=== PATIENT | male | born 1960 | race African-American/Black ===

== ENCOUNTER 2019-03-21 08:38 | Outpatient (CLI) | payer BC, SELFPAY ==
--- NOTE | ~2019-03-21 | XR_ITS ---
EXAMINATION: XR shoulder RT min 2V EXAM DATE: 03/21/2019 08:51 INDICATION: No known recent injury provided at this time. Pain of the right shoulder. TECHNIQUE: The following right shoulder projections obtained: frontal projection with internal rotati on, frontal projection with external rotation, Grashey, and axillary (4+ views). There is no prior s tudy for comparison. FINDINGS: No evidence of right shoulder rotator cuff calcific tendinosis. . There is mild glenohum eral, mild to moderate acromioclavicular acromioclavicular joint primary osteoarthritis. High riding right shoulder could indicate chronic rotator cuff tear. There are no acute fractures or dislocation s identified. There is no subcutaneous gas. The soft tissue is unremarkable. There are no radiopa que foreign bodies. IMPRESSION: 1. Mild to moderate right shoulder osteoarthritis. 2. Possible chronic rotator cuff tear. Reviewed, dictated and finalized at location A. NING GENERALIST
== END 2019-03-21 08:39 | disposition home or self-care (01) ==
LOC: ANHIMG 08:42
PROVIDERS: PCP Family Medicine; Visit Provider Physician Assistant
DX: M19.011 Primary osteoarthritis, right shoulder (principal)
CPT/HCPCS: 73030

== ENCOUNTER 2019-04-23 00:08 | Day surgery (SDC) | payer BC, SELFPAY ==
[2019-04-16 14:48] VITALS: BMI 21.3
[2019-04-23 07:50] VITALS: BP 111/84; PULSE 60; RESP 16; TEMP 36.3; O2SAT 100; BMI 22.4
--- NOTE | 2019-04-23 08:01 | P.HP_ITS ---
History of Present Illness History of Present Illness Consent: Risks, benefits, and alternatives have been discussed and questions answered. Patient agrees to proceed with procedure. Chief complaint: neoplasm screening, family hx colon CA Narrative: Luis Sharpe is a 58 year old AA male Referred for screening colonoscopy secondary family history of colon cancer in his mother and maternal grandmother. Patient states he has had several colonoscopies in the past last one was 5 years ago and no polyps were seen at that time. Patient is asymptomatic. [facility] Past Medical History Medical History H/O bladder problems History of colon polyps Social History Social History Smoking status: Never smoker Alcohol intake: current Substance use: never Meds Home Medications and Allergies Home Medications Medication Instructions Recorded Confirmed Type clopidogrel 75 mg tablet 75 mg PO DAILY 01/31/19 04/23/19 History ferrous sulfate 325 mg (65 mg 325 mg PO DAILY 01/31/19 04/16/19 History iron) tablet omega-3 fatty acids 1,000 mg 1,000 mg PO DAILY 01/31/19 04/16/19 History capsule rosuvastatin 10 mg tablet 10 mg PO DAILY 01/31/19 04/16/19 History tamsulosin 0.4 mg capsule 0.4 mg PO DAILY 01/31/19 04/16/19 History vitamin B complex 1 tablet PO DAILY 01/31/19 04/16/19 History chlorthalidone 25 mg tablet 25 mg PO DAILY #30 tablet 02/01/19 04/16/19 Rx amlodipine 10 mg tablet 10 mg PO DAILY #90 tablet 02/22/19 04/16/19 Rx Allergies Allergy/AdvReac Type Severity Reaction Status Date / Time niacin Allergy Intermediate Itching Verified 04/23/19 07:52 lisinopril Allergy Unknown Angioedema Verified 04/23/19 07:52 Macrolide Antibiotics Allergy Unknown Verified 04/23/19 07:52 Vital Signs Vital Signs - 24 hr 04/23/19 07:50 Temperature 36.3 C L Pulse Rate 60 Respiratory Rate 16 Blood Pressure 111/84 Pulse Oximetry 100 Exam Const: Orientation/consciousness: patient oriented x3 Resp: Auscultation: clear to auscultation bilaterally Cardio: Rate: regular rate Rhythm: regular rhythm Heart sounds: no murmurs GI: GI Palp: Yes Soft to palpation, No Tenderness to palpation present (GI), Yes No hepatosplenomegaly present and No Palpable mass present Auscultation: normal bowel sounds Neuro: General: patient oriented x3 and no focal motor deficits Extrem: General: no pedal edema Assessment and Plan Additional Plan Screening colonoscopy secondary history of colon cancer mother and paternal grandmother.
[2019-04-23] MEDS: LACTATED RINGERS 1,000 ML 150 ML IV CONT (08:08)
--- NOTE | 2019-04-23 08:12 | WPDANESEPPF ---
Anes - Initial Pre Proc Eval Procedure: Operation Date: 04/23/19 09:00 Proposed Procedures p Screening Colonoscopy - Salvador Mittal MD Date/Time: 04/23/19 08:12 Surgeon: Salvador Mittal MD Pre Op Diagnosis: neoplasm screening, family hx colon CA Patient Data Age: 58 Gender: M Height: 5 ft 6 in Weight: 63.1 kg Last Vital Signs Temp 97.3 F L 04/23/19 07:50 Pulse 60 04/23/19 07:50 Resp 16 04/23/19 07:50 BP 111/84 04/23/19 07:50 Pulse Ox 100 04/23/19 07:50 Allergies Allergy/AdvReac Type Severity Reaction Status Date / Time niacin Allergy Intermediate Itching Verified 04/23/19 07:52 lisinopril Allergy Unknown Angioedema Verified 04/23/19 07:52 Macrolide Antibiotics Allergy Unknown Verified 04/23/19 07:52 Home Medications Medication Instructions Recorded Confirmed Type clopidogrel 75 mg tablet 75 mg PO DAILY 01/31/19 04/23/19 History ferrous sulfate 325 mg (65 mg 325 mg PO DAILY 01/31/19 04/23/19 History iron) tablet omega-3 fatty acids 1,000 mg 1,000 mg PO DAILY 01/31/19 04/23/19 History capsule rosuvastatin 10 mg tablet 10 mg PO DAILY 01/31/19 04/23/19 History tamsulosin 0.4 mg capsule 0.4 mg PO DAILY 01/31/19 04/23/19 History vitamin B complex 1 tablet PO DAILY 01/31/19 04/23/19 History chlorthalidone 25 mg tablet 25 mg PO DAILY #30 tablet 02/01/19 04/23/19 Rx amlodipine 10 mg tablet 10 mg PO DAILY #90 tablet 02/22/19 04/23/19 Rx Patient hx anesthesia problems: none Family hx anesthesia problems: none PMFSH Past Medical History Medical History (Updated 04/23/19 @ 08:11 by Travis Avalos MD) H/O bladder problems History of colon polyps History of CVA (cerebrovascular accident) had in 2011; no residual problems; has some balance issues HLD (hyperlipidemia) HTN (hypertension) Social History Social History Smoking status: Never smoker Alcohol intake: current Substance use: never Anes - Eval Final PreProcedure Day of Procedure 04/23/19 08:12 Patient weight: normal Heart: regular rate and rhythm Lungs: clear to auscultation Airway: Mallampati scale class II Neurological: alert and oriented Last oral intake: >/= 8 hours ASA classification: III Emergent: no Anesthetic plan: proceed Anesthesia type and monitoring: general GIVS and standard monitoring Informed Consent: The patient's anesthetic plan and its attendant risks and benefits were discussed with the patient/family/POA. Questions were solicited and answers provided to the satisfaction of the patient/family/POA.
[2019-04-23 08:46] VITALS: BP 97/65; PULSE 74; RESP 19; O2SAT 100
[2019-04-23 08:56] VITALS: BP 100/64; PULSE 52; RESP 16; O2SAT 100
[2019-04-23 09:06] VITALS: BP 100/97; PULSE 52; RESP 18; O2SAT 100
== END 2019-04-23 09:19 | disposition home or self-care (01) ==
PROVIDERS: PCP Family Medicine; Visit Provider Internal Medicine Gastroenterology
PROC: 0DJD8ZZ Inspection of Lower Intestinal Tract, Via Natural or Artificial Opening Endoscopic (ICD-10-PCS; CPT 45378; principal; 2019-04-23 09:00)
DX: Z12.11 Encounter for screening for malignant neoplasm of colon (principal); Z86.010 Personal history of colon polyps; Z80.0 Family history of malignant neoplasm of digestive organs; I10 Essential (primary) hypertension; E78.5 Hyperlipidemia, unspecified; Z86.73 Personal history of transient ischemic attack (TIA), and cerebral infarction without residual deficits; Z79.02 Long term (current) use of antithrombotics/antiplatelets
CPT/HCPCS: 45378; J2704; J7120

== ENCOUNTER 2019-11-15 10:49 | Outpatient (CLI) | payer BC, SELFPAY ==
--- NOTE | ~2019-11-15 | MR_ITS ---
EXAMINATION: MR shoulder RT wo con DATE: 11/15/2019 12:01 INDICATION: Worsening chronic posterior right shoulder pain and limited range of motion. TECHNIQUE: Magnetic resonance imaging (MRI) of the right shoulder was performed without intravenous c ontrast. Sequences included axial PD-weighted FS FSE, coronal oblique PD-weighted FS FSE, coronal obl ique T2-weighted FS FSE, sagittal PD-weighted FS FSE, and sagittal T1-weighted SE. COMPARISON: None. FINDINGS: Coracoacromial arch: Normal anatomic variant unfused meso acromial os acromiale. The undersurface of the combined acromion and os acromiale is curved in morphology (type II). The coracoacromial ligament is normal. Moderate acromioclavicular osteoarthritis. Rotator cuff: Full-thickness tear along the superior and middle facet footplates of the entire supraspinatus and in fraspinatus tendons. The tear margin is retracted approximately 3-4 cm medially to near the level of the rim of the glenoid. The teres minor tendon is normal. Moderate subscapularis tendinopathy without discrete tear. There is moderate fatty atrophy of the infraspinatus muscle belly suggesting infraspi natus tendon tears chronic. There is medial retraction and mild atrophy of the supraspinatus muscle b evelin. Biceps tendon, glenoid labrum and glenohumeral cartilage: Mild tendinopathy without discrete tear of the intra-articular long head biceps tendon. The posterior superior glenoid labrum is small consistent with labral degeneration. There is nonuniform partial th ickness cartilage loss along the anterosuperior quadrant of the glenoid but without degenerative subc hondral changes. Partial-thickness cartilage loss without degenerative subchondral changes at the ape x of the humeral head where it appears to articulate with the undersurface of the acromion. Fluid: Small glenohumeral joint effusion with proportional extension of a small amount of fluid into the samanta g head biceps tendon sheath and through the full-thickness rotator cuff tear into the subacromial bur sa. No loose osteochondral bodies. Bones: Normal marrow signal with no fracture or pathologic marrow replacing process. Cystic change at the an terior facet of the greater tuberosity likely related to chronic rotator cuff disease. IMPRESSION: 1. Full-thickness tear along the greater tuberosity footplate of the supraspinatus and infraspinatus tendons. There is moderate fatty atrophy of the infraspinatus muscle belly suggesting at least this p ortion of the tear is chronic. 2. Mild glenohumeral osteoarthritis with degeneration at the posterosuperior glenoid labrum. 3. Moderate acromioclavicular osteoarthritis and normal variant meso acromial os acromiale. Reviewed, dictated and finalized at location A. IMPRESSION: 1. Full-thickness tear along the greater tuberosity footplate of the supraspina tus and infraspinatus tendons. There is moderate fatty atrophy of the infraspin atus muscle belly suggesting at least this portion of the tear is chronic. 2. Mild glenohumeral osteoarthritis with degeneration at the posterosuperior gl enoid labrum. 3. Moderate acromioclavicular osteoarthritis and normal variant meso acromial o s acromiale.
== END 2019-11-15 10:50 | disposition home or self-care (01) ==
LOC: ANHIMG 10:55
PROVIDERS: PCP Family Medicine; Visit Provider Orthopaedic Surgery
DX: M19.011 Primary osteoarthritis, right shoulder (principal)
CPT/HCPCS: 73221

== ENCOUNTER 2020-01-07 11:06 | Outpatient (CLI) | payer BC, SELFPAY ==
--- NOTE | 2020-01-07 11:07 | ECG_ITS ---
Measurements Intervals [place] Rate: 58 P: 45 MT: 143 QRS: 54 QRSD: 88 T: 56 QT: 421 QTc: 415 Interpretive Statements SINUS BRADYCARDIA BASELINE ARTIFACT- I, II, III, AVR, AVL, AVF BORDERLINE ECG Electronically Signed On 01-07-2020 13:25:31 FUEL CONVERSION TECHNICIAN by Edward Drake D.O.
[2020-01-07 12:09] LABS: Anion Gap 6 mmol/L (8-16); Blood Urea Nitrogen 19 mg/dL (9-20); Calcium 9.5 mg/dL (8.4-10.2); Carbon Dioxide 34 mmol/L (22-30); Chloride 99 mmol/L (98-107); Estimated Glomerular Filt Rate > 60; Glucose 119 mg/dL (75-110); Potassium 3.5 mmol/L (3.4-5.0); Sodium 139 mmol/L (137-145)
[2020-01-07 12:11] LABS: Hematocrit 39.8 % (42.0-52.0); Hemoglobin 13.3 g/dL (14.0-18.0)
--- NOTE | 2020-01-15 12:49 | PM.IMHP ---
H&P: HPI History of Present Illness Date/Time: 01/15/20 Chief Complaint: Shoulder/Arm Injury/Condition Pt presents with Right shoulder pain that has been present for approx 2 years. No specific injury. He has most difficulty with lifting/raising his arm. The pain has been waking him from sleep. He has done some physical therapy, with minimal relief. He had an MRI done 11/13/19. Dominant hand: right Current symptoms: Reports stiffness, weakness and radiation Location: ACJ, bicipital groove, anterior, posterior and proximal Character: intermittent Onset: >1 year Exacerbated by: motion, lifting, prolonged activity, sleeping, reaching/overhead motion and lying on affected side Previous treatments: Anti-inflammatory meds: right, Ice: right and Physical therapy: right Improved by treatment/surgery: some Review of Systems Review of Systems: All systems reviewed & are unremarkable except as noted in HPI and below Constitutional: Constitutional: Denies headache(s) and Denies weakness Eyes: Eyes: Denies blurry vision, Denies change in vision and Denies loss of vision ENT: Denies dizziness, Denies dry mouth, Denies headache(s) and Denies nasal congestion Cardiovascular: Cardiovascular: Denies chest pain, Denies syncope, Denies leg edema and Denies dyspnea on exertion Respiratory: Respiratory: Denies cough and Denies dyspnea on exertion Gastrointestinal: Gastrointestinal: Denies abdominal pain, Denies constipation and Denies diarrhea Genitourinary: Genitourinary: Denies urinary frequency Musculoskeletal: Musculoskeletal: Reports as per HPI and Denies numbness Integumentary/Breasts: Skin/Breast: Reports system reviewed and no additional complaints, except as docu Neurologic: Denies dizziness, Denies syncope, Denies headache(s), Denies loss of vision, Denies numbness and Denies weakness Psychiatric: Psychiatric: Reports no additional psychiatric complaints Endocrine: Endocrine: Reports no additional endocrine complaints Hematologic/Lymphatic: Hematologic/Lymphatic: Reports no additional hematologic/lymphatic complaints PMFSH Past Medical History Medical History Abnormality of heart beat Arthritis H/O bladder problems High cholesterol History of colon polyps History of CVA (cerebrovascular accident) had in 2011; no residual problems; has some balance issues HLD (hyperlipidemia) HTN (hypertension) Seasonal allergies Stroke Urinary hesitancy Surgical History Surgical History History of arthroscopy Family History Family History Other Arthritis Diabetes mellitus Hypertension Malignant neoplasm Social History Social History Social History: Alcohol intake: current Drinks per week: 1 Substance use: never Substance use type: does not use Spiritual care concerns: No Meds Home Medications and Allergies Home Medications Medication Instructions Recorded Confirmed Type ferrous sulfate 325 mg (65 mg 325 mg PO DAILY 01/31/19 01/31/20 History iron) tablet omega-3 fatty acids 1,000 mg 1,000 mg PO DAILY 01/31/19 01/31/20 History capsule tamsulosin 0.4 mg capsule 0.4 mg PO DAILY 01/31/19 01/31/20 History vitamin B complex 1 tablet PO DAILY 01/31/19 01/31/20 History chlorthalidone 25 mg tablet 25 mg PO DAILY #30 tablet 11/07/19 01/31/20 Rx rosuvastatin 10 mg tablet 10 mg PO DAILY #30 tablet 11/08/19 01/31/20 Rx amlodipine 5 mg tablet 5 mg PO DAILY #90 tablet 11/22/19 01/31/20 Rx chlorhexidine gluconate 4 % 1 applic TOPICAL ONCE #237 ml 12/03/19 01/31/20 Rx topical liquid clopidogrel 75 mg tablet 75 mg PO DAILY #90 tablet 01/02/20 01/31/20 Rx hydrocodone-acetaminophen [Exchange] 1 tablet PO Q6H PRN #60 tablet NS 01/16/20 01/31/20 Rx Allergies Allergy/AdvReac Type S
== END 2020-01-07 11:07 | disposition home or self-care (01) ==
LOC: ANHSURGERY 11:07
PROVIDERS: Anesthesiology; PCP Family Medicine; Visit Provider Orthopaedic Surgery
DX: R35.8 Other polyuria (principal); I10 Essential (primary) hypertension; D64.9 Anemia, unspecified; Z01.818 Encounter for other preprocedural examination; R94.31 Abnormal electrocardiogram [ECG] [EKG]
CPT/HCPCS: 36415; 80048; 85014; 85018; 93005

== ENCOUNTER 2020-01-12 00:47 | Outpatient (CLI) | payer BC, SELFPAY ==
[2020-01-12 18:31] LABS: SARS-CoV-2 RNA PCR Negative
== END 2020-01-12 00:48 | disposition home or self-care (01) ==
LOC: ANHCOVIDDT 00:47
PROVIDERS: PCP Family Medicine; Visit Provider Orthopaedic Surgery
DX: Z01.812 Encounter for preprocedural laboratory examination (principal); Z20.828 Contact with and (suspected) exposure to other viral communicable diseases
CPT/HCPCS: 87635; C9803; U0003

== ENCOUNTER 2020-01-16 01:29 | Day surgery (SDC) | payer BC, SELFPAY ==
[2019-12-31 16:14] VITALS: BMI 23.1
[2020-01-04 09:10] VITALS: BMI 23.1
[2020-01-16] VITALS (8 sets, daily range): BP systolic 127–168; BP diastolic 71–98; PULSE 65–89; RESP 12–18; TEMP 36.3–36.9; O2SAT 98–100; BMI 23.6
--- NOTE | ~2020-01-16 | XR_ITS ---
XR surgery orthopedic 01/16/2020 11:06 Rotator cuff repair procedure TECHNIQUE: Fluoroscopy used during rotator cuff repair performed by [Dominik Martin MD] on . 67 seconds of fluoroscopy time. with 3 images captured. ]The DAP is 67 mGym2. ] FINDINGS: Correlate with procedure note. 2 screws are identified transfixing the acromion. There is suggestion of clavicular osteotomy. IMPRESSION: Fluoroscopy used during rotator cuff repair. Please refer to procedural report for detail s. Reviewed, dictated and finalized at location B. YCOMB DECAPPER IMPRESSION: Fluoroscopy used during rotator cuff repair. Please refer to proced ural report for details.
--- NOTE | 2020-01-16 07:22 | WPDHPUPDATE1 ---
History and Physical Update Update Date/Time: 01/16/20 07:22 History and Physical has been reviewed, including an updated exam of the patient. There are NO changes in the patient's condition. Risks, benefits, and alternatives have been discussed and questions answered. Patient agrees to proceed with procedure.
[2020-01-16] MEDS: CELECOXIB 200 MG CAPSULE PO (07:51)
[2020-01-16] MEDS: ACETAMINOPHEN 500 MG TABLET 1000 MG PO (07:51)
[2020-01-16] MEDS: LACTATED RINGERS 1,000 ML 30 ML IV CONT ×2 (08:03→11:47)
--- NOTE | 2020-01-16 09:02 | WPDANESEPPF ---
Anes - Initial Pre Proc Eval Procedure: Operation Date: 01/16/20 09:00 Proposed Procedures p Right Rotator Cuff Repair, Distal Clavicle Excision, Proceed As Indicated - Dominik Martin MD Date/Time: 01/16/20 09:02 Surgeon: Dominik Martin MD Pre Op Diagnosis: Right Rotator Cuff Tear, Rt AC Joint DJD Patient Data Age: 59 Gender: M Height: 5 ft 6 in Weight: 66.5 kg Last Vital Signs Temp 36.9 C 01/16/20 07:35 Pulse 65 01/16/20 07:35 Resp 18 01/16/20 07:35 BP 143/88 H 01/16/20 07:35 Pulse Ox 100 01/16/20 07:35 Allergies Allergy/AdvReac Type Severity Reaction Status Date / Time niacin Allergy Intermediate Itching Verified 01/16/20 07:48 lisinopril Allergy Unknown Angioedema Verified 01/16/20 07:48 Home Medications Medication Instructions Recorded Confirmed Type ferrous sulfate 325 mg (65 mg 325 mg PO DAILY 01/31/19 01/16/20 History iron) tablet omega-3 fatty acids 1,000 mg 1,000 mg PO DAILY 01/31/19 01/16/20 History capsule tamsulosin 0.4 mg capsule 0.4 mg PO DAILY 01/31/19 01/16/20 History vitamin B complex 1 tablet PO DAILY 01/31/19 01/16/20 History chlorthalidone 25 mg tablet 25 mg PO DAILY #30 tablet 11/07/19 01/16/20 Rx rosuvastatin 10 mg tablet 10 mg PO DAILY #30 tablet 11/08/19 01/16/20 Rx amlodipine 5 mg tablet 5 mg PO DAILY #90 tablet 11/22/19 01/16/20 Rx chlorhexidine gluconate 4 % 1 applic TOPICAL ONCE #237 ml 12/03/19 01/16/20 Rx topical liquid clopidogrel 75 mg tablet 75 mg PO DAILY #90 tablet 01/02/20 01/16/20 Rx Patient hx anesthesia problems: none Family hx anesthesia problems: none PMFSH Past Medical History Medical History Abnormality of heart beat Arthritis H/O bladder problems High cholesterol History of colon polyps History of CVA (cerebrovascular accident) had in 2011; no residual problems; has some balance issues HLD (hyperlipidemia) HTN (hypertension) Seasonal allergies Stroke Urinary hesitancy Surgical History Surgical History History of arthroscopy Family History Family History Other Arthritis Diabetes mellitus Hypertension Malignant neoplasm Social History Social History Social History: Smoking status: Never smoker Alcohol intake: current Drinks per week: 1 Substance use: never Substance use type: does not use Living arrangements: with family Sexual Orientation (if Verbalized by the Patient): Straight or Heterosexual Spiritual care concerns: No Anes - Eval Final PreProcedure Day of Procedure 01/16/20 09:02 Patient weight: normal Heart: regular rate and rhythm Lungs: clear to auscultation Airway: Mallampati scale class II Neurological: alert and oriented Last oral intake: >/= 8 hours Anesthetic plan: proceed Anesthesia type and monitoring: general ETT and standard monitoring Informed Consent: The patient's anesthetic plan and its attendant risks and benefits were discussed with the patient/family/POA. Questions were solicited and answers provided to the satisfaction of the patient/family/POA.
[2020-01-16] MEDS: ceFAZolin 2 GM/D5W 50 ML 2 GM/50 ML BAG IVPB (09:16)
[2020-01-16] MEDS: BUPIVACAINE HCL 0.5% PF 30 ML VIAL INFILTRATE (11:24)
--- NOTE | 2020-01-16 11:46 | PM.PROC ---
Procedure Note - Detailed Date of procedure: 01/16/20 Pre-op diagnosis: Right Rotator Cuff Tear, Rt AC Joint DJD R ROTATOR CUFF TEAR, R AC JOINT DJD, R OS ACROMIALE Post-op diagnosis: same (R. ROTATOR CUFF TEAR, R. AC JOINT DJD, R. OS ACROMIALE) Procedure performed: REPAIR OF RIGHT ROTATOR CUFF WITH DCE AND ORIF OS ACROMIALE Description of procedure: THE PATIENT WAS TAKEN TO THE OPERATING ROOM AND THEN INTUBATED AND PLACED IN THE BEACH CHAIR POSITION. THE RIGHT UPPER EXTREMITY WAS PREPPED AND DRAPED IN THE NORMAL STERILE FASHION. AN INCISION WAS MADE IN BETWEEN THE LATIA-LATERAL ACROMION AND THE AC JOINT. THE FASCIA WAS IDENTIFIED. THE AC JOINT WAS PALPATED. AN INCISION WAS MADE OVER THE CAPSULE OF THE AC JOINT. THE AC JOINT WAS EXPOSED. THERE WAS SEVERE DJD. A DISTAL CLAVICLE EXCISION WAS PREFORMED REMOVING APPROXIMATELY 1 CM OF BONE FROM THE DISTAL CLAVICLE. AND AN OSTEOPHYTE WAS REMOVED FROM THE UNDERSURFACE OF THE CLAVICLE. THE WOUND WAS WASHED AND THE CAPSULE WAS CLOSED WITH 0 VICRYL SUTURE. NEXT A MINI OPEN INCISION WAS MADE THROUGH THE DELTOID MUSCLE EXPOSING THE SUBACROMIAL SPACE. A LIMITED ACROMIOPLASTY WAS PREFORMED. THE OS ACROMIALE WAS IDENTIFIED. THE ACROMIAL FRAGMENT WAS UNSTABLE. THE ROTATOR CUFF WAS IDENTIFIED. THERE WAS A LARGE FULL THICKNESS TEAR TO THE ENTIRE CUFF. THE GREATER TUBEROSITY WAS DEBRIDED TO BLEEDING BONE. 2 ARTHREX 5.5 SUTURE ANCHORS WERE PLACED IN TO GOOD BONE AND HAD VERY GOOD BITES. ELFEGO-RISA TYPE REPAIRS WERE DONE TO THE ROTATOR CUFF AND THERE WAS GOOD APPROXIMATION TO THE GREATER TUBEROSITY. THE REPAIR WAS EXCELLENT. NEXT THE OS ACROMIALE WAS IDENTIFIED AGAIN. THE PSEUDARTHROSIS WAS DEBRIDED TO GOOD BLEEDING BONE. 2, 4.0 CANNULATED SCREWS WERE PLACED THROUGH THE OS AND INTO THE MAIN PORTION OF THE ACROMION. THE SCREWS HAD EXCELLENT BITES. BONE GRAFT FROM THE DISTAL CLAVICLE AND DEMINERALIZED BONE PUTTY WAS PLACED IN BETWEEN THE FRAGMENTS. THE 2 SCREWS WERE ADVANCED AGAIN COMPRESSING THE FRAGMENTS. THE REPAIR WAS STABLE. THERE WAS NO IMPINGEMENT ON THE ROTATOR CUFF REPAIR FROM THE ACROMION WITH RANGE OF MOTION. THE WOUND WAS IRRIGATED WITH COPIOUS AMOUNTS OF ANTIBIOTIC SOLUTION. THE DELTOID MUSCLE WAS REPAIRED WITH #2 FIBER WIRE AND 0 VICRYL SUTURE. THE SUBCUTANEOUS LAYER WAS APPROXIMATED WITH 2-0 VICRYL. THE SKIN WAS APPROXIMATED WITH 3-0 QUIL AND DERMABOND. STERILE DRESSING WAS APPLIED. PATIENT WAS EXTUBATED AND SENT TO RECOVERY ROOM. Anesthesia: GLMA Surgeon: Dominik Martin MD Estimated blood loss (mL): 25 Complications: No immediate complications Condition: stable Disposition: PACU
[2020-01-16] MEDS: ONDANSETRON INJ 4 MG/2 ML VIAL IV PUSH ×2 (12:20→13:06)
== END 2020-01-16 13:50 | disposition home or self-care (01) ==
PROVIDERS: PCP Family Medicine; Visit Provider Orthopaedic Surgery
PROC: (CPT 23420; principal; 2020-01-16 09:00)
DX: M75.101 Unspecified rotator cuff tear or rupture of right shoulder, not specified as traumatic (principal); M89.8X1 Other specified disorders of bone, shoulder; M19.011 Primary osteoarthritis, right shoulder; I10 Essential (primary) hypertension; E78.5 Hyperlipidemia, unspecified; Z86.73 Personal history of transient ischemic attack (TIA), and cerebral infarction without residual deficits; R39.11 Hesitancy of micturition; Z79.02 Long term (current) use of antithrombotics/antiplatelets
CPT/HCPCS: 23420; 23120; 23585; A9270; C1713; J0330; J0690; J1100; J1170; J2250; J2405; J2704; J2710; J3010; J7120

== ENCOUNTER 2020-04-17 16:28 | Emergency (ER) | payer BC, SELFPAY ==
--- NOTE | ~2020-04-17 | CT_ITS ---
EXAMINATION: CT brain wo con INDICATION: Dizziness and blurred vision COMPARISON: None TECHNIQUE: Standard unenhanced head CT. The dose-length product (DLP) was 605.33 mGy-cm. The mA was a djusted according to patient size. Iterative reconstruction technique was employed. FINDINGS: There is no intracranial hemorrhage, acute infarction, or abnormal mass lesion. The ventric les are normal. There is no abnormal mass effect or midline shift. The rocha-white matter differentiat ion is normal. The basal cisterns are patent. The orbits are normal. The paranasal sinuses, mastoids and calvarium are normal. IMPRESSION: 1. No acute intracranial abnormality. Reviewed, dictated and finalized at location A. GANIC CHEMIST
[2020-04-17 16:31] VITALS: BP 128/92; PULSE 61; RESP 20; TEMP 36.3; O2SAT 100
--- NOTE | 2020-04-17 16:48 | ED.GENADULT ---
HPI - General Adult General Chief complaint: Recheck/Abnormal Lab/Rx Stated complaint: dry mouth, dizzy, blurred vision, weight loss Time Seen by Provider: 04/17/20 16:38 Source: patient Mode of arrival: ambulatory Limitations: no limitations History of Present Illness HPI narrative: Patient is a 59-year-old male complaining of elevated blood sugar at home, 300-400'S , accompanied by increased frequency urination, dizziness and blurred vision. Patient states he was recently diagnosed with diabetes 3 weeks ago. Patient was placed on Metformin 500 mg p.o. once a day by PCP. Patient denies any speech disturbance, focal weakness or numbness, unsteady gait, chest pain, shortness of breath, abdominal pain, nausea, vomiting, diarrhea, fever or chills. Related Data Home Medications Medication Instructions Recorded Confirmed ferrous sulfate 325 mg (65 mg 325 mg PO DAILY 01/31/19 03/27/20 iron) tablet omega-3 fatty acids 1,000 mg 1,000 mg PO DAILY 01/31/19 03/27/20 capsule tamsulosin 0.4 mg capsule 0.4 mg PO DAILY 01/31/19 03/27/20 vitamin B complex 1 tablet PO DAILY 01/31/19 03/27/20 finasteride 5 mg tablet 5 mg PO DAILY 03/27/20 03/27/20 Allergies Allergy/AdvReac Type Severity Reaction Status Date / Time niacin Allergy Intermediate Itching Verified 03/27/20 14:01 lisinopril Allergy Unknown Angioedema Verified 03/27/20 14:01 Review of Systems Review of Systems: All systems reviewed & are unremarkable except as noted in HPI and below Constitutional: Constitutional: Denies body ache(s), Denies chills, Denies excessive sweating, Denies fatigue, Denies fever(s), Denies headache(s), Denies lethargy, Denies malaise, Denies weakness and Denies weight loss Eyes: Eyes: Denies blurry vision, Denies change in vision and Denies loss of vision ENT: Denies ear discharge, Denies headache(s), Denies lip swelling, Denies epistaxis, Denies nasal congestion, Denies neck pain, Denies throat swelling and Denies tongue swelling Cardiovascular: Cardiovascular: Denies chest pain, Denies chest pain at rest, Denies chest pain with activity, Denies diaphoresis, Denies rapid heart rate, Denies edema, Denies irregular heart rhythm, Denies lightheadedness, Denies palpitations, Denies dyspnea and Denies dyspnea on exertion Respiratory: Respiratory: Denies chest congestion, Denies cough, Denies hemoptysis, Denies dyspnea and Denies dyspnea on exertion Gastrointestinal: Gastrointestinal: Denies abdominal pain, Denies melena, Denies hematochezia, Denies diarrhea, Denies nausea, Denies vomiting and Denies hematemesis Musculoskeletal: Musculoskeletal: Denies abnormal gait, Denies deformity, Denies joint swelling, Denies limited range of motion, Denies neck pain and Denies numbness Neurologic: Denies Abnormal speech present, Denies abnormal gait, Denies confusion, Denies headache(s), Denies focal weakness, Denies loss of vision, Denies numbness, Denies Sensory deficit (Neuro) and Denies weakness Psychiatric: Psychiatric: Denies confusion, Denies depression, Denies auditory hallucinations, Denies homicidal ideation and Denies suicidal ideation Endocrine: Endocrine: Denies cold intolerance, Denies excessive sweating, Denies fatigue, Denies heat intolerance and Denies palpitations Hematologic/Lymphatic: Hematologic/Lymphatic: Denies easy bleeding and Denies easy bruising Allergic/Immunologic: Allergic/Immunologic: Denies lip swelling, Denies throat swelling and Denies tongue swelling PMFSH Past Medical History Medical History Abnormality of heart beat Arthritis H/O bladder problems High cholesterol History of colon polyps History of CVA (cerebrovascular accident) had in 2011; no residual problems; has some balance issues HLD (hyperlipidemia) HTN (hypertension) IFG (impaired fasting glucose) Seasonal allergies Stroke Urinary hesitancy Surgical History Surgical History (Reviewed 04/17/20 @ 16:51 by Eron
[2020-04-17 17:00] VITALS: BP 132/94; PULSE 83; O2SAT 97
[2020-04-17 17:02] LABS: Basophils Absolute Auto 0.1 K/mm3 (0.0-0.1); Basophils Percent Auto 0.8 % (0.2-1.2); Eosinophils Absolute Auto 0.1 K/mm3 (0-0.3); Hematocrit 41.5 % (42.0-52.0); Hemoglobin 14.2 g/dL (14.0-18.0); Immature Granulocyte Absolute 0.01 K/mm3 (0.00-0.031); Immature Granulocyte Percent A 0.2 % (0-0.5); Lymphocytes Absolute Auto 1.53 K/mm3 (0.9-3.2); Lymphocytes Percent Auto 24.9 % (18.3-44.2); Mean Corpuscular HGB Conc 34.2 g/dl (32-36); Mean Corpuscular Hemoglobin 27.8 pg (26-34); Mean Corpuscular Volume 81.4 fl (80-100); Monocytes Absolute Auto 0.9 K/mm3 (0.1-0.6); Neutrophils Absolute Auto 3.6 K/mm3 (1.3-6.7); Neutrophils Percent Auto 59.1 % (45.5-73.1); Platelet Count Result 245 k/mm3 (150-375); Red Cell Distribution Width 12.1 % (11.5-14.5); White Blood Count 6.2 K/mm3 (4.5-10.0)
[2020-04-17 17:02] LABS: Glucose Point of Care > 500 (65-105)
[2020-04-17 17:09] LABS: Alveolar/Arterial O2 Gradient 15.7 mmHg; Carboxyhemoglobin 0.6 % THb (0-2.0); Fractional Inspired Oxygen 21 %; HCO3 ABG 21.6 mEq/l (22.0-26.0); Methemoglobin ABG 0.3 %THb (0-1.5); Oxygen Content ABG 19.7 %vol (16.0-22.0); Oxygen Saturation ABG 97.4 % (95.0-100.0); Oxyhemoglobin 95.6 % THb (90.0-100.0); PCO2 ABG 33.7 mmHg (35.0-45.0); PO2 ABG 93.7 mmHg (80.0-100.0); PO2 FiO2 Ratio Arterial Blood 4.46 %; Reduced Hemoglobin 3.5 %THb (0-5.0); Total Hemoglobin 14.6 g/dL (12.0-18.0); pH ABG 7.424 (7.350-7.450)
[2020-04-17 17:10] LABS: Device ROOM AIR; Modified Allen's Test Pass; Site Drawn RIGHT RADIAL
[2020-04-17] MEDS: SODIUM CHLORIDE 0.9% IV 1,000 ML 999 ML IV CONT ×2 (17:14→20:29)
[2020-04-17 17:16] LABS: Alanine Aminotransferase 28 U/L (4-50); Albumin Level 4.4 g/dL (3.5-5.1); Alkaline Phosphatase 66 U/L (38-126); Anion Gap 16 mmol/L (8-16); Aspartate Amino Transferase 27 U/L (17-59); Bilirubin,Total 0.5 mg/dL (0.2-1.3); Blood Urea Nitrogen 27 mg/dL (9-20); Calcium 10.3 mg/dL (8.4-10.2); Carbon Dioxide 20 mmol/L (22-30); Chloride 94 mmol/L (98-107); Estimated CRCL calculation 54 ml/min; Estimated Glomerular Filt Rate > 60; Glucose 614 mg/dL (75-110); Magnesium 1.7 mg/dL (1.6-2.3); Phosphorus 4.4 mg/dL (2.5-4.5); Potassium 4.1 mmol/L (3.4-5.0); Sodium 130 mmol/L (137-145)
[2020-04-17 17:35] LABS: Beta-Hydroxybutyrate/Acetoacetate 4.98 mmol/L (0.02-0.27)
[2020-04-17 17:39] LABS: Add Urine Microscopic? YES; Appearance Urine Clear (Clear); Bilirubin Urine Negative (Negative); Blood Urine Negative (Negative); Color Urine Straw (Yellow); Glucose Urine UA 3+ mg/dL (Negative); Ketones Urine 2+ mg/dL (Negative); Leukocyte Esterase Ur Negative LEU/UL (Negative); Mucus Urine Rare /lpf; Nitrate Urine Negative (Negative); Protein Urine Negative (Negative); RBC Urine 0-2 /hpf (0-2); Specific Grav Ur 1.029 (1.001-1.035); Squamous Epithelial Cell Urine Rare /hpf (Few); Urobilinogen Urine Negative mg/dL (<2.0); WBC Urine 0-3 /hpf
[2020-04-17 17:40] VITALS: BP 133/89; PULSE 70; RESP 18; O2SAT 98
[2020-04-17] MEDS: LACTATED RINGERS 1,000 ML 999 ML IV CONT (18:12)
[2020-04-17 18:15] VITALS: BP 122/80; PULSE 62; RESP 18; O2SAT 99
[2020-04-17 19:23] VITALS: BP 127/84; PULSE 68; RESP 18; O2SAT 100
--- NOTE | 2020-04-17 19:25 | PC.NURSE ---
Report to DK Zamudio, to continue care. IVF x2 infused.
[2020-04-17 19:27] LABS: Glucose Point of Care 419 (65-105)
[2020-04-17] MEDS: INSULIN HUMAN REGULAR (*BKC) 100 UNITS/ML 10 UNITS IV PUSH (19:35)
[2020-04-17 20:41] LABS: Glucose Point of Care 284 (65-105)
--- NOTE | 2020-04-17 20:45 | ECG_ITS ---
Measurements Intervals [place] Rate: 60 P: 37 AL: 138 QRS: 41 QRSD: 105 T: 29 QT: 425 QTc: 427 Interpretive Statements SINUS RHYTHM BORDERLINE T WAVE ABNORMALITY- ANTERIOR LEADS BASELINE ARTIFACT- I, III, AVL BORDERLINE ECG Electronically Signed On 04-18-2020 6:54:42 OUTBOUND TELEMARKETER by Edward Drake D.O.
[2020-04-17 21:58] VITALS: BP 126/84; PULSE 78; RESP 16; TEMP 36.6; O2SAT 99
== END 2020-04-17 21:30 | disposition home or self-care (01) ==
PROVIDERS: Emergency Provider Emergency Medicine; PCP Family Medicine
DX: E11.65 Type 2 diabetes mellitus with hyperglycemia (principal); E78.5 Hyperlipidemia, unspecified; I10 Essential (primary) hypertension; M19.90 Unspecified osteoarthritis, unspecified site; Z86.73 Personal history of transient ischemic attack (TIA), and cerebral infarction without residual deficits; Z86.010 Personal history of colon polyps; Z79.84 Long term (current) use of oral hypoglycemic drugs
CPT/HCPCS: 36415; 36600; 70450; 80053; 81001; 82010; 82375; 82805; 82948; 83050; 83735; 84100; 85025; 93005; 96361; 96374; 99284; J1815; J7030; J7120

== ENCOUNTER 2020-08-11 13:00 | Outpatient (RCR) | payer BC, SELFPAY ==
[2020-06-10 12:42] VITALS: BMI 22.2
== END 2020-08-27 15:01 | disposition home or self-care (01) ==
LOC: ANHDMC 13:00
PROVIDERS: PCP Family Medicine; Referring Provider Nurse Practitioner Family; Visit Provider Nurse Practitioner Family
DX: E11.9 Type 2 diabetes mellitus without complications (principal); Z71.3 Dietary counseling and surveillance; Z71.89 Other specified counseling
CPT/HCPCS: 97802; G0108

== ENCOUNTER 2020-09-29 13:27 | Outpatient (RCR) | payer BC, SELFPAY | END 2020-12-15 11:35 | disposition home or self-care (01) | LOC: ANHDMC 13:27 | PROVIDERS: PCP Family Medicine; Referring Provider Nurse Practitioner Family; Visit Provider Nurse Practitioner Family | DX: E11.9 Type 2 diabetes mellitus without complications (principal); Z71.89 Other specified counseling | CPT/HCPCS: G0108 ==

== ENCOUNTER 2021-01-20 13:00 | Outpatient (RCR) | payer BC, SELFPAY | END 2021-01-20 15:05 | disposition home or self-care (01) | LOC: ANHDMC 13:00 | PROVIDERS: PCP Family Medicine; Visit Provider Nurse Practitioner Family | DX: E11.9 Type 2 diabetes mellitus without complications (principal); Z71.89 Other specified counseling | CPT/HCPCS: G0108 ==

== ENCOUNTER 2021-06-16 13:56 | Outpatient (CLI) | payer BC, SELFPAY ==
--- NOTE | ~2021-06-16 | XR_ITS ---
EXAMINATION: XR lumbar spine 2-3V DATE: 06/16/2021 14:33 INDICATION: Low back pain TECHNIQUE: Anteroposterior and lateral views of the lumbar spine, and cone-down lateral view of the l umbosacral junction were obtained. COMPARISON: None. FINDINGS: There is no fracture, dislocation, or subluxation. The vertebral body heights are normal. T here is mild loss of intervertebral disc space height throughout the lumbar spine. Small degenerative osteophytes project from the anterior endplates of multiple vertebral bodies. There is moderate face t osteoarthritis of the lower lumbar spine. A moderate volume of colonic stool is present. There is m ild osteoarthritis of the hips. IMPRESSION: 1. Mild lumbar spondylosis without acute findings. Reviewed, dictated and finalized at location A.
== END 2021-06-16 13:57 | disposition home or self-care (01) ==
PROVIDERS: PCP Family Medicine; Visit Provider Nurse Practitioner Family
DX: M54.50 Low back pain, unspecified (principal); M47.816 Spondylosis without myelopathy or radiculopathy, lumbar region
CPT/HCPCS: 72100

== ENCOUNTER 2024-03-05 10:42 | Observation (INO) | payer MEDICARE, SELFPAY ==
[2024-03-05] VITALS (12 sets, daily range): BP systolic 105–141; BP diastolic 69–85; PULSE 61–72; RESP 15–20; TEMP 36.5–36.9; O2SAT 97–100; BMI 21.5
[2024-03-05 10:52] LABS: Glucose Point of Care 443 mg/dl (65-105)
[2024-03-05] MEDS: SODIUM CHLORIDE 0.9% IV 1,000 ML 999 ML IV CONT ×2 (11:18→12:05)
[2024-03-05] MEDS: INSULIN HUMAN REGULAR (*BKC) 100 UNITS/ML 6 UNITS IV PUSH (11:19)
--- NOTE | 2024-03-05 11:27 | ED_ITS ---
HPI - General Adult General Chief complaint: Recheck/Abnormal Lab/Rx Stated complaint: high BS Time Seen by Provider: 03/05/24 10:47 History of Present Illness HPI narrative: 63-year-old male presents to the emergency department for evaluation for hyperglycemia. Patient is a known type 2 diabetic. Patient had previously been insulin but did have improved blood sugars and was able to stop all treatments. Patient has had increase blood sugars since October and was started back on metformin. Patient reports increased urination, increased dry mouth and blood sugars running in the 300-400. Patient denies any change in his diabetic diet. Patient is well-appearing at time of evaluation. Patient's was present during the interview and patient's daughter was on the phone during the interview. Related Data Home Medications ?Medication ?Instructions ?Recorded ?Confirmed ?Last Taken ?Type omega-3 fatty acids 1,000 mg 1,000 mg PO DAILY 01/31/19 03/05/24 03/05/24 History capsule (Fish Oil Concentrate) vitamin B complex (B 1 tablet PO DAILY 01/31/19 03/05/24 03/05/24 History Complex-Vitamin B12 tablet) Allergies Allergy/AdvReac Type Severity Reaction Status Date / Time niacin Allergy Intermediate Itching Verified 03/05/24 14:29 lisinopril Allergy Unknown Angioedema Verified 03/05/24 14:29 Review of Systems 2 Review of Systems: All systems reviewed & are unremarkable except as noted in HPI and below PMFSH Past Medical History Medical History (Updated 03/05/24 @ 18:46 by Omid Carias MD) Glaucoma Kidney stones Benign prostatic hyperplasia Colon polyps Cerebrovascular accident (2011) occasional balance issues Type 2 diabetes mellitus Hyperlipidemia Hypertension Seasonal allergies Arthritis Surgical History Surgical History (Updated 03/05/24 @ 15:41 by Lilia Carrero PA-C) History of cataract extraction History of repair of right rotator cuff (2019) Family History Family History Other Arthritis Diabetes mellitus Hypertension Malignant neoplasm Social History Social History (Updated 03/05/24 @ 15:41 by Lilia Carrero PA-C) Social History: Surrogate medical decision maker: Dania Sharpe, spouse. Code status: Full code. Smoking status: Never smoker Second hand tobacco smoke exposure: Yes Alcohol intake: never Drinks per week: 1 Alcohol use details: occasionally Substance use: never Substance use type: does not use Do You Feel Safe in your Home?: Yes Lack of Transportation: No Lack of Food: Never True Current Housing: I Have Housing Concerned About Future Housing: No Difficulty Paying Gas/Electric Bills: No Difficulty Paying for Meds: No Currently Unemployed: No Education: High School Diploma/GED Difficulty w/ Childcare or Family Care: No Spiritual care concerns: No Exam 2 Narrative: APPEARANCE: Well appearing, no pain, no distress, well-nourished. HEAD: normocephalic, atraumatic. EYES: PERRLA/EOMI, conjunctivae clear. NOSE: Normal no drainage EARS:TMS clear with good light reflex. THROAT: Pharynx clear, no exudate. NECK: Supple. No adenopathy, no masses. RESPIRATORY: Airway patent, respirations nonlabored. Clear to auscultation bilaterally, no rales, rhonchi, wheezing. CARDIOVASCULAR: Regular rate and rhythm without murmurs rubs or gallops. ABDOMINAL: Soft, nontender, nondistended, normal bowel sounds MUSCULOSKELETAL: Moves all extremities. Strength/ROM intact, No edema, No calf tenderness. NEURO: Alert. Cranial nerves II through XII intact. Grossly intact SKIN: Warm, dry. Normal Color Course Vital Signs Vital signs: Vital Signs Temperature 97.7 F 03/05/24 10:49 Pulse Rate 71 03/05/24 10:49 Respiratory Rate 20 03/05/24 10:49 Blood Pressure 141/85 H 03/05/24 10:49 Pulse Oximetry 100 03/05/24 10:49 Oxygen Delivery Room Air 03/05/24 10:49 Temperature 98.1 F 03/05/24 15:58 Pulse Rate 66 03/05/24 18:00 Respiratory Rate 17 03/05/24 18:00 Blood Pressure 113/76 03/05/24 18:00 Pulse Oximetry 100 03/05/24 18:00 Oxygen Delivery Room Air 03/05/24 16:00 Medical Decision Making [facility] Narrative Medical decision making narrative: 63-year-old male presenting emergency department for evaluation for poorly controlled diabetes. Patient was afebrile with a white blood cell count of 4.2 and hemoglobin of 12.1. Patient did have a potassium of 4.6 but did have an elevated glucose of 530 and mildly elevated anion gap. Patient also had a significant elevated beta hydroxybutyrate with ketones in his urine. Case was discussed with the metal solderer and patient was started on an insulin bolus and infusion. Patient was treated with 2 L of IV fluids and admitted to the ICU. Case was discussed with the hospitalist. Patient and family were updated on the results of workup and plan for admission. All questions concerns were addressed. Patient was well-appearing at time of admission. Differential Diagnosis Differential Diagnosis: Hyperglycemia, DKA, dehydration, THUY Vital Signs Vital Signs: Vital Signs Temperature 97.7 F 03/05/24 10:49 Pulse Rate 71 03/05/24 10:49 Respiratory Rate 20 03/05/24 10:49 Blood Pressure 141/85 H 03/05/24 10:49 Pulse Oximetry 100 03/05/24 10:49 Oxygen Delivery Room Air 03/05/24 10:49 Temperature 98.1 F 03/05/24 15:58 Pulse Rate 66 03/05/24 18:00 Respiratory Rate 17 03/05/24 18:00 Blood Pressure 113/76 03/05/24 18:00 Pulse Oximetry 100 03/05/24 18:00 Oxygen Delivery Room Air 03/05/24 16:00 Lab Data Lab results reviewed: Yes I reviewed the patient's lab results. 03/05/24 11:26 03/05/24 14:19 Labs: Lab Results 03/05/24 03/05/24 03/05/24 Range/Units 10:47 11:26 12:02 WBC 4.2 L (4.5-10.0) K/mm3 RBC 4.16 L (4.6-6.20) M/mm3 Hgb 12.1 L (14.0-18.0) g/dL Hct 36.4 L (42.0-52.0) % MCV 87.5 (80-100) fl MCH 29.1 (26-34) pg MCHC 33.2 (32-36) g/dl RDW 12.0 (11.5-14.5) % Plt Count 211 (150-375) k/mm3 MPV 12.4 H (7.4-10.4) fl Immature Gran % (Auto) 0.5 (0-0.5) % Neut % (Auto) 46.2 (45.5-73.1) % Lymph % (Auto) 32.8 (18.3-44.2) % [place] % (Auto) 18.1 H (2.6-8.5) % Eos % (Auto) 1.9 (0-4.4) % Baso % (Auto) 0.5 (0.2-1.2) % Lymph # (Auto) 1.36 (0.9-3.2) K/mm3 [place] # (Auto) 0.8 H (0.1-0.6) K/mm3 Eos # (Auto) 0.1 (0-0.3) K/mm3 Baso # (Auto) 0.0 (0.0-0.1) K/mm3 Abs Immat Gran (auto) 0.02 (0.00-0.031) K/mm3 Absolute Neuts (auto) 1.9 (1.3-6.7) K/mm3 Absolute Nucleated RBC 0.000 (0.0-0.012) K/mm3 Nucleated RBC % 0.0 (0.0-0.2) % Sodium 133 L (137-145) mmol/L Potassium 4.6 (3.4-5.0) mmol/L Chloride 96 L (98-107) mmol/L Carbon Dioxide 21 L (22-30) mmol/L Anion Gap 16 H (4-12) mmol/L BUN 20 (9-20) mg/dL Creatinine 0.88 (0.7-1.3) mg/dL Estim Creat Clear Calc 63 ml/min Estimated GFR > 60 (59 - ) Glucose 530 H* (65-110) mg/dL POC Capillary Glucose 443 H 442 H (65-105) mg/dl Lactic Acid 1.4 (0.7-2.0) mmol/L Calcium 9.4 (8.4-10.2) mg/dL Total Bilirubin 0.9 (0.2-1.3) mg/dL AST 32 (17-59) U/L ALT 30 (6-50) U/L Alkaline Phosphatase 67 (38-126) U/L Total Protein 10.0 H (6.3-8.2) g/dL Albumin 4.1 (3.5-5.1) g/dL Beta-Hydroxybutyrate/Acetoacetate 2.50 H (0.02-0.27) mmol/L Urine Color Yellow (Yellow) Urine Appearance Clear (Clear) Urine pH 5.0 (5.0-9.0) Ur Specific [place] 1.027 (1.001-1.035) Urine Protein Negative (Negative) mg/dL Urine Glucose (UA) 3+ H (Negative) mg/dL Urine Ketones 1+ H (Negative) mg/dL Ur Blood (Man) Negative (Negative) Urine Nitrate Negative (Negative) Urine Bilirubin Negative (Negative) Urine Urobilinogen 0.2 (<2.0) mg/dL Leukocyte Esterase Rfl Negative (Negative) NOLAN/UL Critical Care Time Critical Care Time Critical Care Time: Yes Total Critical Care Time: 35 Discharge Plan Discharge Clinical Impression: DKA (diabetic ketoacidosis) Patient Disposition: Still a Patient Condition: Critical
[2024-03-05 11:36] LABS: Basophils Percent Auto 0.5 % (0.2-1.2); Eosinophils Absolute Auto 0.1 K/mm3 (0-0.3); Eosinophils Percent Auto 1.9 % (0-4.4); Hematocrit 36.4 % (42.0-52.0); Hemoglobin 12.1 g/dL (14.0-18.0); Immature Granulocyte Absolute 0.02 K/mm3 (0.00-0.031); Immature Granulocyte Percent A 0.5 % (0-0.5); Lymphocytes Absolute Auto 1.36 K/mm3 (0.9-3.2); Lymphocytes Percent Auto 32.8 % (18.3-44.2); Mean Corpuscular HGB Conc 33.2 g/dl (32-36); Mean Corpuscular Hemoglobin 29.1 pg (26-34); Mean Corpuscular Volume 87.5 fl (80-100); Mean Platelet Volume 12.4 fl (7.4-10.4); Monocytes Absolute Auto 0.8 K/mm3 (0.1-0.6); Monocytes Percent Auto 18.1 % (2.6-8.5); Neutrophils Absolute Auto 1.9 K/mm3 (1.3-6.7); Neutrophils Percent Auto 46.2 % (45.5-73.1); Platelet Count Result 211 k/mm3 (150-375); Red Blood Count 4.16 M/mm3 (4.6-6.20); White Blood Count 4.2 K/mm3 (4.5-10.0)
[2024-03-05 11:38] LABS: Add Urine Microscopic? NO; Appearance Urine Clear (Clear); Bilirubin Urine Negative (Negative); Blood Urine Negative (Negative); Color Urine Yellow (Yellow); Glucose Urine UA 3+ mg/dL (Negative); Ketones Urine 1+ mg/dL (Negative); Leukocyte Esterase Ur Negative LEU/UL (Negative); Nitrate Urine Negative (Negative); Protein Urine Negative (Negative); Specific Grav Ur 1.027 (1.001-1.035); Urobilinogen Urine 0.2 mg/dL (<2.0)
[2024-03-05 11:58] LABS: Lactic Acid Reflex 1.4 mmol/L (0.7-2.0)
[2024-03-05 12:07] LABS: Alanine Aminotransferase 30 U/L (6-50); Albumin Level 4.1 g/dL (3.5-5.1); Alkaline Phosphatase 67 U/L (38-126); Anion Gap 16 mmol/L (4-12); Aspartate Amino Transferase 32 U/L (17-59); Bilirubin,Total 0.9 mg/dL (0.2-1.3); Blood Urea Nitrogen 20 mg/dL (9-20); Calcium 9.4 mg/dL (8.4-10.2); Carbon Dioxide 21 mmol/L (22-30); Chloride 96 mmol/L (98-107); Estimated CRCL calculation 63 ml/min; Estimated Glomerular Filt Rate > 60; Glucose 530 mg/dL (65-110); Potassium 4.6 mmol/L (3.4-5.0); Sodium 133 mmol/L (137-145)
[2024-03-05 12:08] LABS: Glucose Point of Care 442 mg/dl (65-105)
[2024-03-05] MEDS: INSULIN HUMAN REGULAR (*BKC) 100 UNITS in SODIUM CHLORIDE 0.9% IV 99 ML 6 UNITS IV CONT (12:44)
--- NOTE | 2024-03-05 13:41 | WPDCNINT ---
Assessment and Plan Assessment and plan (1) Diabetic ketoacidosis: Code(s): E11.10 - Type 2 diabetes mellitus with ketoacidosis without coma Status: Acute Assessment and Plan: 03/05/2024: Patient presented the ER with complains of been elevated blood sugars, nausea, vomiting, polydipsia and polyuria. -was found to be in DKA with elevated anion gap, beta hydroxybutyrate and blood sugars of 530 -patient was given 2 L IV fluid bolus and started on insulin infusion per DKA protocol -will continue insulin drip and IV fluids per DKA protocol -once anion gap closes will transition to long-acting insulin and sliding scale insulin -will consult certified adaptive physical educator and dietitian to evaluate the pain -okay for ice chips only (2) Type 2 diabetes mellitus: Qualifiers: Diabetes mellitus complication status: without complication Diabetes mellitus termite treater insulin use: without intermediate use Qualified Code(s): E11.9 - Type 2 diabetes mellitus without complications Code(s): E11.9 - Type 2 diabetes mellitus without complications Status: Acute Assessment and Plan: Patient with history of diabetes, was initially on insulin which was discontinued in 2021 as his blood sugars will control with diet. -February 2024 commands A1c was elevated and upon seeing is primary care provider patient was started on metformin 500 mg daily despite which his blood sugars remained elevated between 300-400s. -restarted on metformin on 02/17/2024 -02/13/2024: Hemoglobin A1c was 8.3 (3) HTN (hypertension): Qualifiers: Hypertension type: primary hypertension Qualified Code(s): I10 - Essential (primary) hypertension Code(s): I10 - Essential (primary) hypertension Status: Acute Assessment and Plan: Patient takes amlodipine, chlorthalidone at home -currently will hold blood pressure medications as blood pressures are stable (4) HLD (hyperlipidemia): Code(s): E78.5 - Hyperlipidemia, unspecified Status: Acute Assessment and Plan: Patient on rosuvastatin and [place] 3 fatty acids -will start once patient takes p.o. Plan DVT prophylaxis: Lovenox Stress ulcer prophylaxis: Not indicated Nutrition: NPO except ice chips Code Status: Full code Critical Care Time Spent: 49 minutes Discussed with patient and family at bedside and updated them with patient's condition and plan of care. I answered all the questions Due to a high probability of clinically significant, life threatening deterioration, the patient required my highest level of preparedness to intervene emergently and I personally spent this critical care time directly and personally managing the patient. This critical care time included obtaining a history; examining the patient; pulse oximetry; ordering and review of studies; arranging urgent treatment with development of a management plan; evaluation of patient's response to treatment; frequent reassessment; and discussions with other providers. It was exclusive of separately billable procedures and treating other patients and teaching time. Please see Assessment and Plan section and the rest of the note for further information on patient assessment and treatment This dictation may have been done utilizing a voice recognition system. Attempts have been made to correct errors. However, there may be uncorrected grammatical, spelling, and recognitions errors present. Spout Positioner Consult Note Consult date: 03/05/24 Reason for consult: Hyperglycemia, Diabetic ketoacidosis, nausea, vomiting, polyuria, polydipsia HPI: Luis Sharpe is a 63 year old male with past medical history of type 2 diabetes, history of CVA without residual deficits, GERD, arthritis, seasonal allergies, hyperlipidemia, essential hypertension, presented the ED on 03/05/2024 with complains of hyperglycemia, nausea, vomiting, polydipsia and polyuria. Patient stated that he had been doing without his diabetes medications (metformin). He had been on insulin which was stopped in 2021 to do good glycemic control. His blood sugars had been diet controlled since 2021. He was seen by his primary care (Jayshree Clark PA-C) on February 17, 2024 we was noted to have a A1c of 8.3. He was restarted on metformin 500 mg daily. Since then his blood sugars are running between 300s to 400s. Denies any changes in his diabetic diet. Patient has been taking his metformin regularly. In the ER due CBC was within normal limit, sodium 133, potassium 4.6, 6 chloride 96, CO2 21, anion gap of 16, BUN 20, creatinine 0.88, blood sugar of 530, elevated beta hydroxybutyrate. UA showed 3+ glucose and 1+ ketones. Patient was given 2 L IV fluid bolus, started on insulin infusion transferring to ICU Patient was seen and examined the ER, very pleasant gentleman currently in no acute distress, he stated he did have some nausea and vomiting but no abdominal pain. He complained of polyuria and polydipsia along with hyperglycemia. He denies any shortness of breath, chest pain, cough, no signs and symptoms of influenza or COVID. Denies any tobacco illicit drug use. He occasionally drinks alcohol. Currently hemodynamically stable, awake, alert, oriented, able to answer questions Review of Systems Review of Systems: All systems reviewed & are unremarkable except as noted in HPI and below PMFSH Past Medical History Medical History Seasonal allergies Arthritis Urinary hesitancy Abnormality of heart beat High cholesterol Stroke H/O bladder problems History of colon polyps HLD (hyperlipidemia) History of CVA (cerebrovascular accident) had in 2011; no residual problems; has some balance issues IFG (impaired fasting glucose) HTN (hypertension) Surgical History Surgical History History of arthroscopy Family History Family History Other Arthritis Diabetes mellitus Hypertension Malignant neoplasm Social History Social History Social History: Smoking status: Never smoker Alcohol intake: current Drinks per week: 1 Alcohol use details: occasionally Substance use: never Substance use type: does not use Living arrangements: with family Occupation/Education: occupation Gender identity (if verbalized by the patient): Male Sexual Orientation (if Verbalized by the Patient): Straight or Heterosexual Spiritual care concerns: No Meds Home Medications and Allergies Home Medications ?Medication ?Instructions ?Recorded ?Confirmed ?Type omega-3 fatty acids 1,000 mg 1,000 mg PO DAILY 01/31/19 03/05/24 History capsule (Fish Oil Concentrate) vitamin B complex (B 1 tablet PO DAILY 01/31/19 03/05/24 History Complex-Vitamin B12 tablet) blood sugar diagnostic (Blood #100 ea 03/27/20 02/17/24 Rx Glucose Test strips) blood-glucose meter #1 ea 03/27/20 02/17/24 Rx lancets #200 ea 03/27/20 02/17/24 Rx pen needle, diabetic 32 gauge x #100 ea 04/25/20 02/17/24 Rx 5/32 (Pen Needle) ferrous sulfate 325 mg (65 mg 325 mg PO DAILY #90 tabs 09/29/20 03/05/24 Rx iron) tablet chlorthalidone 25 mg tablet 25 mg PO DAILY 90 days #90 tabs 07/19/23 03/05/24 Rx finasteride 5 mg tablet 5 mg PO DAILY #90 tabs 07/19/23 03/05/24 Rx rosuvastatin 10 mg tablet (Crestor) 10 mg PO DAILY #90 tabs 07/19/23 03/05/24 Rx amlodipine 10 mg tablet 10 mg PO DAILY #90 tabs 11/08/23 03/05/24 Rx clopidogrel 75 mg tablet 75 mg PO DAILY #90 tabs 02/13/24 03/05/24 Rx potassium chloride 8 mEq 8 meq PO DAILY #90 caps 02/13/24 03/05/24 Rx capsule,extended release metformin 500 mg tablet,extended 2,000 mg (4 x 500 mg) PO DAILY 1 02/17/24 03/05/24 Rx release 24 hr month #120 tabs Allergies Allergy/AdvReac Type Severity Reaction Status Date / Time niacin Allergy Intermediate Itching Verified 03/05/24 14:29 lisinopril Allergy Unknown Angioedema Verified 03/05/24 14:29 Vital Signs Vital Signs - 24 hr 03/05/24 10:49 03/05/24 10:58 03/05/24 11:00 Temperature 97.7 F Pulse Rate 71 72 Respiratory Rate 20 19 20 Blood Pressure 141/85 H 140/81 Pulse Oximetry 100 100 100 Oxygen Delivery Room Air 03/05/24 12:05 03/05/24 12:45 Temperature Pulse Rate 64 61 Respiratory Rate 17 16 Blood Pressure 134/84 120/78 Pulse Oximetry 100 100 Oxygen Delivery Exam Narrative: General: Pleasant gentleman in no acute distress HEENT:? Pupils equal and reactive, sclera is clear, dry oral mucosa Neck:? Supple, no cervical lymphadenopathy Respiratory:? Clear to auscultation bilaterally, no wheezing, adequate air and Cardiac:? S1-S2 normal, regular rate and rhythm Abdomen:? Soft, nontender, nondistended, normoactive bowel sound Extremities:? No edema, palpable pedal pulses Neuro:? Patient is awake, alert, oriented x3, answers to questions appropriately and follows simple commands in all extremities Skin:? Warm and dry Psych:? Normal mentation and affect Results Labs 03/05/24 11:26 03/05/24 11:26 Labs: Short CBC 03/05/24 Range/Units 11:26 WBC 4.2 L (4.5-10.0) K/mm3 Hgb 12.1 L (14.0-18.0) g/dL Hct 36.4 L (42.0-52.0) % Plt Count 211 (150-375) k/mm3 BMP 03/05/24 11:26 Sodium 133 L Potassium 4.6 Chloride 96 L Carbon Dioxide 21 L BUN 20 Creatinine 0.88 Glucose 530 H* Calcium 9.4 Liver Function 03/05/24 Range/Units 11:26 Total Bilirubin 0.9 (0.2-1.3) mg/dL AST 32 (17-59) U/L ALT 30 (6-50) U/L Alkaline Phosphatase 67 (38-126) U/L Albumin 4.1 (3.5-5.1) g/dL Urine 03/05/24 Range/Units 11:26 Urine Color Yellow (Yellow) Urine Appearance Clear (Clear) Urine pH 5.0 (5.0-9.0) Ur Specific [place] 1.027 (1.001-1.035) Urine Protein Negative (Negative) mg/dL Urine Glucose (UA) 3+ H (Negative) mg/dL Quality VTE Prophylaxis VTE prophylaxis: pharmacologic ordered Hospitalist MIPS Advance Care Plan I have confirmed that the patient's Advanced Care Plan is present, code status is documented, or surrogate decision maker is listed in patient medical record.: Yes Medication Reconciliation I have utilized all available resources to obtain, update and review the patients current medications (includes all prescriptions, OTC, herbals, cannabis, and nutritional supplements).: Yes
--- NOTE | 2024-03-05 13:57 | ADMGEN ---
This patient, Luis Sharpe, was admitted to -. Patient/family oriented to hospital policies and general routines including ID bracelet, bed and alarms, visiting hours, pain management, procedures, bathroom and other care routines, personal items, smoking policy, room service/diet, and visiting hours. Information on how to activate the Rapid Response Team has been discussed. Patient/Family are encouraged to report perceived risks to care and to ask questions if they do not understand what they are told or what they should do.
[2024-03-05 14:00] LABS: Glucose Point of Care 130 mg/dl (65-105)
--- NOTE | 2024-03-05 14:00 | P.HP_ITS ---
H&P: HPI History of Present Illness Date/Time: 03/05/24 14:00 Chief Complaint: High blood sugar. Narrative: This is a pleasant 63-year-old male with type 2 diabetes mellitus, hypertension, hyperlipidemia, and benign prostatic hyperplasia who presented to the emergency department with high blood sugar. The patient provides the following history. He was previously on insulin but got his diabetes under control and has only been taking only metformin since 2021. Hemoglobin A1c in July 2023 was 6.2% however a few weeks ago it had jumped to 8.3% and since that time he has been more diligent about checking his glucose and reports that they have been running in the 300s to 400s. With further questioning he does admit that he has not been following a good diet over the last couple of months due to the holidays. He also endorses polydipsia, polyuria, and more recently nausea and vomiting. He denies fever, chills, sweats, recent cold and flu symptoms, chest pain, shortness of breath, diarrhea, and dysuria. In the ED: He was afebrile on arrival with stable vital signs. Labs were significant for a sodium of 133, potassium 4.6, chloride 96, carbon dioxide 21, anion gap 16, BUN 20, creatinine 0.88, glucose 530, beta hydroxybutyrate 2.50. Urinalysis was positive for 3+ glucose and 1+ ketones. He was given a 2 L normal saline bolus and was started on insulin drip and he is being admitted to the ICU in this setting for further treatment of diabetic ketoacidosis. Review of Systems Review of Systems: 12 systems were reviewed and are negativ e except for as per HPI. [facility] Past Medical History Medical History Glaucoma Kidney stones Benign prostatic hyperplasia Colon polyps Cerebrovascular accident (2011) occasional balance issues Type 2 diabetes mellitus Hyperlipidemia Hypertension Seasonal allergies Arthritis Surgical History Surgical History History of cataract extraction History of repair of right rotator cuff (2019) Family History Family History Other Arthritis Diabetes mellitus Hypertension Malignant neoplasm Social History Social History Social History: Surrogate medical decision maker: Dania Sharpe, spouse. Code status: Full code. Smoking status: Never smoker Second hand tobacco smoke exposure: Yes Alcohol intake: never Drinks per week: 1 Alcohol use details: occasionally Substance use: never Substance use type: does not use Do You Feel Safe in your Home?: Yes Lack of Transportation: No Lack of Food: Never True Current Housing: I Have Housing Concerned About Future Housing: No Difficulty Paying Gas/Electric Bills: No Difficulty Paying for Meds: No Currently Unemployed: No Education: High School Diploma/GED Difficulty w/ Childcare or Family Care: No Spiritual care concerns: No Meds Home Medications and Allergies Home Medications ?Medication ?Instructions ?Recorded ?Confirmed ?Type omega-3 fatty acids 1,000 mg 1,000 mg PO DAILY 01/31/19 03/05/24 History capsule (Fish Oil Concentrate) vitamin B complex (B 1 tablet PO DAILY 01/31/19 03/05/24 History Complex-Vitamin B12 tablet) blood sugar diagnostic (Blood #100 ea 03/27/20 03/05/24 Rx Glucose Test strips) blood-glucose meter #1 ea 03/27/20 03/05/24 Rx lancets #200 ea 03/27/20 03/05/24 Rx pen needle, diabetic 32 gauge x #100 ea 04/25/20 03/05/24 Rx 5/32 (Pen Needle) ferrous sulfate 325 mg (65 mg 325 mg PO DAILY #90 tabs 09/29/20 03/05/24 Rx iron) tablet chlorthalidone 25 mg tablet 25 mg PO DAILY 90 days #90 tabs 07/19/23 03/05/24 Rx finasteride 5 mg tablet 5 mg PO DAILY #90 tabs 07/19/23 03/05/24 Rx rosuvastatin 10 mg tablet (Crestor) 10 mg PO DAILY #90 tabs 07/19/23 03/05/24 Rx amlodipine 10 mg tablet 10 mg PO DAILY #90 tabs 11/08/23 03/05/24 Rx clopidogrel 75 mg tablet 75 mg PO DAILY #90 tabs 02/13/24 03/05/24 Rx potassium chloride 8 mEq 8 meq PO DAILY #90 caps 02/13/24 03/05/24 Rx capsule,extended release metformin 500 mg tablet,extended 2,000 mg (4 x 500 mg) PO DAILY 1 02/17/24 03/05/24 Rx release 24 hr month #120 tabs Allergies Allergy/AdvReac Type Severity Reaction Status Date / Time niacin Allergy Intermediate Itching Verified 03/05/24 14:29 lisinopril Allergy Unknown Angioedema Verified 03/05/24 14:29 Vital Signs Vital Signs - 24 hr 03/05/24 10:49 03/05/24 10:58 03/05/24 11:00 Temperature 97.7 F Pulse Rate 71 72 Respiratory Rate 20 19 20 Blood Pressure 141/85 H 140/81 Pulse Oximetry 100 100 100 Oxygen Delivery Room Air 03/05/24 12:05 03/05/24 12:45 Temperature Pulse Rate 64 61 Respiratory Rate 17 16 Blood Pressure 134/84 120/78 Pulse Oximetry 100 100 Oxygen Delivery Exam Narrative: General: Well-developed, nontoxic-appearing gentleman the semi-Posada position in bed in no acute distress. Weight: 60.5 kg. BMI: 21.5. He is in good spirits. HEENT: PERRL, EOMI. Sclera anicteric. Oral mucosa moist. Neck: Supple. Respiratory: Lungs are clear to auscultation bilaterally. Cardiovascular: Regular rate and rhythm with S1-S2. Gastrointestinal: Abdomen is soft, flat, nontender, and nondistended with positive bowel sounds. Skin: Warm and dry. No rash or lesions on limited exam. Extremities: No cyanosis, clubbing, or edema. Radial and pedal pulses intact. Neurological: Alert. Cranial nerves 2-12 are grossly intact. No gross focal deficits to casual conversation. Psychiatric: Pleasant and cooperative with normal mood and affect. Judgment and insight intact. H&P: Results Labs Labs: Short CBC 03/05/24 Range/Units 11:26 WBC 4.2 L (4.5-10.0) K/mm3 Hgb 12.1 L (14.0-18.0) g/dL Hct 36.4 L (42.0-52.0) % Plt Count 211 (150-375) k/mm3 BMP 03/05/24 11:26 Sodium 133 L Potassium 4.6 Chloride 96 L Carbon Dioxide 21 L BUN 20 Creatinine 0.88 Glucose 530 H* Calcium 9.4 Liver Function 03/05/24 Range/Units 11:26 Total Bilirubin 0.9 (0.2-1.3) mg/dL AST 32 (17-59) U/L ALT 30 (6-50) U/L Alkaline Phosphatase 67 (38-126) U/L Albumin 4.1 (3.5-5.1) g/dL Urine 03/05/24 Range/Units 11:26 Urine Color Yellow (Yellow) Urine Appearance Clear (Clear) Urine pH 5.0 (5.0-9.0) Ur Specific [place] 1.027 (1.001-1.035) Urine Protein Negative (Negative) mg/dL Urine Glucose (UA) 3+ H (Negative) mg/dL Assessment and Plan Assessment and plan (1) Diabetic ketoacidosis associated with type 2 diabetes mellitus: Code(s): E11.10 - Type 2 diabetes mellitus with ketoacidosis without coma Status: Acute Assessment and Plan: Patient presents with hyperglycemia and complaints of polyuria and polydipsia with a recent increase in glucose as per HPI. * Received 2 L normal saline IV bolus in the ED. * Currently on insulin drip per DKA protocol. * Continue Q hourly Accu-Cheks and q.4 BMPs. * Transition to long-acting insulin once and anion gap closes. * Dietitian and adaptive physical educator consulted. * C-peptide ordered at patient's request. (2) Hypertension: Code(s): I10 - Essential (primary) hypertension Status: Acute Assessment and Plan: Blood pressures were reviewed and they are stable. * Continue amlodipine and lisinopril. * Hold chlorthalidone for now given mild electrolyte abnormalities. Quality VTE Prophylaxis VTE prophylaxis: pharmacologic ordered Hospitalist MIPS Advance Care Plan I have confirmed that the patient's Advanced Care Plan is present, code status is documented, or surrogate decision maker is listed in patient medical record.: Yes Medication Reconciliation I have utilized all available resources to obtain, update and review the patients current medications (includes all prescriptions, OTC, herbals, cannabis, and nutritional supplements).: Yes
[2024-03-05] MEDS: KCL 20 MEQ/D5/0.45% SOD CHL 1,000 ML 150 ML IV CONT (14:08)
[2024-03-05 14:40] LABS: Magnesium 1.7 mg/dL (1.6-2.3); Phosphorus 2.1 mg/dL (2.5-4.5)
[2024-03-05 14:41] LABS: Anion Gap 10 mmol/L (4-12); Blood Urea Nitrogen 15 mg/dL (9-20); Calcium 8.8 mg/dL (8.4-10.2); Carbon Dioxide 25 mmol/L (22-30); Chloride 105 mmol/L (98-107); Estimated CRCL calculation 69 ml/min; Estimated Glomerular Filt Rate > 60; Glucose 75 mg/dL (65-110); Hemoglobin A1C 11.6 % (<5.7); Potassium 3.2 mmol/L (3.4-5.0); Sodium 140 mmol/L (137-145)
[2024-03-05] MEDS: ENOXAPARIN 40 MG/0.4 ML SYRINGE SUB-Q (14:42)
[2024-03-05] MEDS: POTASSIUM CHLORIDE 20 MEQ ER TABLET 40 MEQ PO (15:21)
[2024-03-05] MEDS: INSULIN GLARGINE (*BKC) 100 UNITS/ML 10 UNITS SUB-Q (15:22)
[2024-03-05] MEDS: MAGNESIUM OXIDE 400 MG TABLET PO (15:22)
[2024-03-05] MEDS: POTASSIUM PHOS/SODIUM PHOS 250 MG TABLET PO (15:26)
[2024-03-05 15:29] LABS: Glucose Point of Care 122 mg/dl (65-105)
[2024-03-05 16:03] LABS: Glucose Point of Care 150 mg/dl (65-105)
[2024-03-05 16:10] LABS: MRSA (PCR) NOT DETECTED (NOT DETECTE)
[2024-03-05 20:59] LABS: Glucose Point of Care 270 mg/dl (65-105)
[2024-03-05] MEDS: INSULIN ASPART (*BKC) 100 UNITS/ML SUB-Q (21:03)
[2024-03-06] VITALS (8 sets, daily range): BP systolic 98–120; BP diastolic 64–83; PULSE 60–69; RESP 12–18; TEMP 36.4–36.8; O2SAT 99–100; BMI 21.6
[2024-03-06 04:58] LABS: Basophils Percent Auto 0.3 % (0.2-1.2); Eosinophils Absolute Auto 0.1 K/mm3 (0-0.3); Eosinophils Percent Auto 4.5 % (0-4.4); Hematocrit 31.7 % (42.0-52.0); Hemoglobin 10.8 g/dL (14.0-18.0); Immature Granulocyte Absolute 0.02 K/mm3 (0.00-0.031); Immature Granulocyte Percent A 0.7 % (0-0.5); Lymphocytes Absolute Auto 0.84 K/mm3 (0.9-3.2); Lymphocytes Percent Auto 28.8 % (18.3-44.2); Mean Corpuscular HGB Conc 34.1 g/dl (32-36); Mean Corpuscular Volume 85.2 fl (80-100); Mean Platelet Volume 11.4 fl (7.4-10.4); Monocytes Absolute Auto 0.5 K/mm3 (0.1-0.6); Monocytes Percent Auto 17.5 % (2.6-8.5); Neutrophils Absolute Auto 1.4 K/mm3 (1.3-6.7); Neutrophils Percent Auto 48.2 % (45.5-73.1); Platelet Count Result 184 k/mm3 (150-375); Red Blood Count 3.72 M/mm3 (4.6-6.20); Red Cell Distribution Width 11.9 % (11.5-14.5); White Blood Count 2.9 K/mm3 (4.5-10.0)
[2024-03-06 05:13] LABS: Hemoglobin A1C 11.6 % (<5.7)
[2024-03-06 05:23] LABS: Alanine Aminotransferase 27 U/L (6-50); Albumin Level 3.4 g/dL (3.5-5.1); Alkaline Phosphatase 55 U/L (38-126); Anion Gap 10 mmol/L (4-12); Aspartate Amino Transferase 30 U/L (17-59); Bilirubin,Total 0.7 mg/dL (0.2-1.3); Blood Urea Nitrogen 10 mg/dL (9-20); Calcium 8.7 mg/dL (8.4-10.2); Carbon Dioxide 24 mmol/L (22-30); Chloride 101 mmol/L (98-107); Estimated CRCL calculation 81 ml/min; Estimated Glomerular Filt Rate > 60; Glucose 276 mg/dL (65-110); Magnesium 1.7 mg/dL (1.6-2.3); Phosphorus 3.1 mg/dL (2.5-4.5); Potassium 3.5 mmol/L (3.4-5.0); Sodium 135 mmol/L (137-145)
[2024-03-06 07:49] LABS: Glucose Point of Care 271 mg/dl (65-105)
[2024-03-06] MEDS: INSULIN ASPART (*BKC) 100 UNITS/ML SUB-Q ×5 (07:53→20:19)
[2024-03-06] MEDS: VITAMIN B COMPLEX CAPSULE 1 CAP PO (07:54)
[2024-03-06] MEDS: CLOPIDOGREL BISULFATE 75 MG TABLET PO (07:54)
[2024-03-06] MEDS: INSULIN GLARGINE (*BKC) 100 UNITS/ML 10 UNITS SUB-Q ×2 (07:54→09:51)
[2024-03-06] MEDS: FINASTERIDE 5 MG TABLET PO (07:54)
[2024-03-06] MEDS: FERROUS SULFATE 325 MG TABLET DR BY MOUTH (07:54)
[2024-03-06] MEDS: ROSUVASTATIN 10 MG TABLET PO (07:54)
[2024-03-06] MEDS: OMEGA 3 POLYUNSAT FATTY ACIDS 1 GM CAP PO (07:54)
[2024-03-06] MEDS: POTASSIUM CHLORIDE 10 MEQ ER TABLET PO (07:55)
[2024-03-06] MEDS: amLODIPine BESYLATE 10 MG TABLET PO (07:55)
[2024-03-06 08:53] LABS: C-Peptide 0.36 ng/mL (0.80-3.85)
--- NOTE | 2024-03-06 09:07 | PC.NURSE ---
This patient, Luis Sharpe, was transferred to [[id number] ] on 03/06/24 at 0847. Personal belongings sent with patient. Report given to [DK Park @[phone] ]. Appropriate documentation sent with patient.
--- NOTE | 2024-03-06 09:12 | PC.NURSE ---
This RN clarified with MD on the amount of Lantus pt should received. Pt already received 10u of Lantus this AM and there's a new order for 20U of Lantus to start at 0900. New order for pt to receive a total of 20u of Lantus. One time order placed for 10u Lantus SQ now and 20u Lantus SQ to start tomorrow AM. Vivian, receiving RN on [facility], updated by this RN on the clarification on the medications
--- NOTE | 2024-03-06 09:16 | P.PNIM_ITS ---
Progress Note: A&P Assessment and Plan (1) Diabetic ketoacidosis: Code(s): E11.10 - Type 2 diabetes mellitus with ketoacidosis without coma Status: Acute Assessment and Plan: 03/05/2024: Patient presented the ER with complains of been elevated blood sugars, nausea, vomiting, polydipsia and polyuria. He was diagnosed with DKA and treated with IV fluids and insulin infusion His anion gap has closed and patient has been transition to subcutaneous since He is tolerating p.o. diet Pending consult adaptive physical educator and dietitian t (2) Type 2 diabetes mellitus: Qualifiers: Diabetes mellitus senior living insulin use: without extermination supervisor use Diabetes mellitus complication status: without complication Qualified Code(s): E11.9 - Type 2 diabetes mellitus without complications Code(s): E11.9 - Type 2 diabetes mellitus without complications Status: Acute Assessment and Plan: Patient with history of diabetes, was initially on insulin which was discontinued in 2021 as his blood sugars will control with diet. -February 2024 commands A1c was elevated and upon seeing is primary care provider patient was started on metformin 500 mg daily despite which his blood sugars remained elevated between 300-400s. -restarted on metformin on 02/17/2024 -02/13/2024: Hemoglobin A1c was 8.3 but his most recent HbA1c on this hospitalization is 11.6 Resume metformin XR 1000 mg Increase Lantus to 20 unit Add with meal insulin of 3 units plus continue sliding scale Continue monitoring and further adjustment (3) HTN (hypertension): Qualifiers: Hypertension type: primary hypertension Qualified Code(s): I10 - Essential (primary) hypertension Code(s): I10 - Essential (primary) hypertension Status: Acute Assessment and Plan: Contain amlodipine (4) HLD (hyperlipidemia): Code(s): E78.5 - Hyperlipidemia, unspecified Status: Acute Assessment and Plan: Patient on rosuvastatin and Blum 3 fatty acids Continue Plan DVT prophylaxis: Lovenox Nutrition: Consistent carbohydrate diet Code Status: Full code Subjective Date/time seen: 03/06/24 Overnight events reviewed. Afebrile Tolerating p.o. diet. On room air Denies any complaints. Patient denies fever, chest pain, shortness of breath, cough, nausea vomiting, abdominal pain,, diarrhea, headache or constipation. All other systems were reviewed and were negative Other Vitals acceptable Review of Systems Review of Systems: All systems reviewed & are unremarkable except as noted in HPI and below Exam Narrative: General: Pleasant gentleman in no acute distress HEENT:? Pupils equal and reactive, sclera is clear, dry oral mucosa Neck:? Supple, no cervical lymphadenopathy Respiratory:? Clear to auscultation bilaterally, no wheezing, adequate air and Cardiac:? S1-S2 normal, regular rate and rhythm Abdomen:? Soft, nontender, nondistended, normoactive bowel sound Extremities:? No edema, palpable pedal pulses Neuro:? Patient is awake, alert, oriented x3, answers to questions appropriately and follows simple commands in all extremities Skin:? Warm and dry Psych:? Normal mentation and affect Objective Data Vital Signs Vital Signs: Vital Signs - 24 hr 03/05/24 10:49 03/05/24 10:58 03/05/24 11:00 Temperature 36.5 C Pulse Rate 71 72 Respiratory Rate 20 19 20 Blood Pressure 141/85 H 140/81 Pulse Oximetry 100 100 100 Oxygen Delivery Room Air 03/05/24 12:05 03/05/24 12:45 03/05/24 14:00 Temperature Pulse Rate 64 61 62 Respiratory Rate 17 16 Blood Pressure 134/84 120/78 Pulse Oximetry 100 100 Oxygen Delivery 03/05/24 14:05 03/05/24 14:09 03/05/24 15:58 Temperature 36.5 C 36.7 C Pulse Rate 65 65 69 Respiratory Rate 15 15 17 Blood Pressure 123/70 126/82 Pulse Oximetry 99 99 97 Oxygen Delivery Room Air 03/05/24 16:00 03/05/24 16:00 03/05/24 18:00 Temperature Pulse Rate 69 67 66 Respiratory Rate 17 17 Blood Pressure 113/76 Pulse Oximetry 97 100 Oxygen Delivery Room Air 03/05/24 18:00 03/05/24 20:00 03/05/24 20:00 Temperature 36.9 C Pulse Rate 66 61 61 Respiratory Rate 16 16 Blood Pressure 105/69 Pulse Oximetry 100 100 Oxygen Delivery Room Air 03/05/24 20:00 03/06/24 00:00 03/06/24 07:51 Temperature 36.8 C 36.8 C Pulse Rate 61 60 65 Respiratory Rate 12 14 Blood Pressure 98/67 L 120/83 Pulse Oximetry 99 100 Oxygen Delivery 03/06/24 07:59 03/06/24 08:17 Temperature Pulse Rate 65 Respiratory Rate 14 Blood Pressure Pulse Oximetry 100 99 Oxygen Delivery Room Air Room Air Intake/Output Intake/Output: Intake & Output 03/03/24 03/04/24 03/05/24 03/06/24 23:59 23:59 23:59 23:59 Intake Total 2855.7 490 Output Total 980 750 Balance 1875.7 -260 Meds/Results Medications: Active Medications Generic Name Dose Route Start Last Admin Trade Name Freq PRN Reason Stop Dose Admin Acetaminophen 650 mg 03/05/24 15:47 Acetaminophen 325 Mg Tablet PO Q6H PRN Mild Pain (1-3) or Fever Amlodipine Besylate 10 mg 03/06/24 09:00 03/06/24 07:55 Amlodipine Besylate 10 Mg Tablet PO 10 mg DAILY VERONIKA Administration Clopidogrel Bisulfate 75 mg 03/06/24 09:00 03/06/24 07:54 Clopidogrel Bisulfate 75 Mg Tablet PO 75 mg DAILY VERONIKA Administration Dextrose 12.5 gm 03/05/24 14:53 Dextrose 50% 25 Gm/50 Ml Syringe IV PUSH PRN PRN Hypoglycemia Protocol Enoxaparin Sodium 40 mg 03/05/24 14:00 03/05/24 14:42 Enoxaparin 40 Mg/0.4 Ml Syringe SUB-Q 40 mg Q24H VERONIKA Administration Ferrous Sulfate 325 mg 03/06/24 09:00 03/06/24 07:54 Ferrous Sulfate [address] BY MOUTH 325 mg DAILY VERONIKA Administration Finasteride 5 mg 03/06/24 09:00 03/06/24 07:54 Finasteride 5 Mg Tablet PO 5 mg DAILY VERONIKA Administration Fish Oil 1 gm 03/06/24 09:00 03/06/24 07:54 Blum 3 Polyunsat Fatty Acids 1 Gm Cap PO 1 gm DAILY VERONIKA Administration Glucagon 1 mg 03/05/24 14:53 Glucagon For Inj 1 Mg Vial IM PRN PRN Hypoglycemia Protocol Glucose 15 gm 03/05/24 14:53 Glucose Oral Gel 15 Gm Of Glucse In 37.5 Gm Tube PO PRN PRN Hypoglycemia Protocol Dextrose 1,000 mls @ 100 mls/hr 03/05/24 14:53 Dextrose 5% 1,000 Ml IVPB PRN PRN Hypoglycemia Protocol Insulin Aspart 3 - 6 units 03/05/24 17:00 03/06/24 07:53 Insulin Aspart (*Bkc) 100 Units/Ml SUB-Q 4 units TIDWM [facility] Administration Protocol Insulin Aspart 1 - 3 units 03/05/24 21:00 03/05/24 21:03 Insulin Aspart (*Bkc) 100 Units/Ml SUB-Q 2 units HS [facility] Administration Protocol Insulin Aspart 3 units 03/06/24 12:00 Insulin Aspart (*Bkc) 100 Units/Ml 0.05 units/kg (3 units) SUB-Q TIDWM [facility] Insulin Glargine 20 units 03/07/24 09:00 Insulin Glargine (*Bkc) 100 Units/Ml SUB-Q DAILY VERONIKA Insulin Glargine 10 units 03/06/24 09:11 Insulin Glargine (*Bkc) 100 Units/Ml SUB-Q 03/06/24 09:12 ONCE ONE Metformin HCl 1,000 mg 03/06/24 08:30 Metformin Hcl Xr 500 Mg Tab.Sr.24h PO DAILY@0800 [facility] Potassium Chloride 10 meq 03/06/24 09:00 03/06/24 07:55 Potassium Chloride 10 Meq Er Tablet PO 10 meq DAILY VERONIKA Administration Rosuvastatin Calcium 10 mg 03/06/24 09:00 03/06/24 07:54 Rosuvastatin 10 Mg Tablet PO 10 mg DAILY VERONIKA Administration Vitamin B Complex 1 cap 03/06/24 09:00 03/06/24 07:54 Vitamin B Complex Capsule PO 1 cap DAILY [facility] Administration Labs Labs: Laboratory Results - last 24 hr 03/05/24 03/05/24 03/05/24 10:47 11:26 12:02 WBC 4.2 L RBC 4.16 L Hgb 12.1 L Hct 36.4 L MCV 87.5 MCH 29.1 MCHC 33.2 RDW 12.0 Plt Count 211 MPV 12.4 H Immature Gran % (Auto) 0.5 Neut % (Auto) 46.2 Lymph % (Auto) 32.8 [place] % (Auto) 18.1 H Eos % (Auto) 1.9 Baso % (Auto) 0.5 Lymph # (Auto) 1.36 [place] # (Auto) 0.8 H Eos # (Auto) 0.1 Baso # (Auto) 0.0 Abs Immat Gran (auto) 0.02 Absolute Neuts (auto) 1.9 Absolute Nucleated RBC 0.000 Nucleated RBC % 0.0 Sodium 133 L Potassium 4.6 Chloride 96 L Carbon Dioxide 21 L Anion Gap 16 H BUN 20 Creatinine 0.88 Estim Creat Clear Calc 63 Estimated GFR > 60 Glucose 530 H* POC Capillary Glucose 443 H 442 H Hemoglobin A1c C-Peptide Lactic Acid 1.4 Calcium 9.4 Phosphorus Magnesium Total Bilirubin 0.9 AST 32 ALT 30 Alkaline Phosphatase 67 Total Protein 10.0 H Albumin 4.1 Beta-Hydroxybutyrate/Acetoacetate 2.50 H TSH (Reflex) Urine Color Yellow Urine Appearance Clear Urine pH 5.0 Ur Specific [place] 1.027 Urine Protein Negative Urine Glucose (UA) 3+ H Urine Ketones 1+ H Ur Blood (Man) Negative Urine Nitrate Negative Urine Bilirubin Negative Urine Urobilinogen 0.2 Leukocyte Esterase Rfl Negative Nasal MRSA (PCR) 03/05/24 03/05/24 03/05/24 13:55 14:18 14:18 WBC RBC Hgb Hct MCV MCH MCHC RDW Plt Count MPV Immature Gran % (Auto) Neut % (Auto) Lymph % (Auto) [place] % (Auto) Eos % (Auto) Baso % (Auto) Lymph # (Auto) [place] # (Auto) Eos # (Auto) Baso # (Auto) Abs Immat Gran (auto) Absolute Neuts (auto) Absolute Nucleated RBC Nucleated RBC % Sodium Potassium Chloride Carbon Dioxide Anion Gap BUN Creatinine Estim Creat Clear Calc Estimated GFR Glucose POC Capillary Glucose 130 H Hemoglobin A1c C-Peptide Lactic Acid Calcium Phosphorus 2.1 L 2.0 L Magnesium 1.7 Total Bilirubin AST ALT Alkaline Phosphatase Total Protein Albumin Beta-Hydroxybutyrate/Acetoacetate TSH (Reflex) Urine Color Urine Appearance Urine pH Ur Specific [place] Urine Protein Urine Glucose (UA) Urine Ketones Ur Blood (Man) Urine Nitrate Urine Bilirubin Urine Urobilinogen Leukocyte Esterase Rfl Nasal MRSA (PCR) 03/05/24 03/05/24 03/05/24 14:19 14:43 15:21 WBC RBC Hgb Hct MCV MCH MCHC RDW Plt Count MPV Immature Gran % (Auto) Neut % (Auto) Lymph % (Auto) [place] % (Auto) Eos % (Auto) Baso % (Auto) Lymph # (Auto) [place] # (Auto) Eos # (Auto) Baso # (Auto) Abs Immat Gran (auto) Absolute Neuts (auto) Absolute Nucleated RBC Nucleated RBC % Sodium 140 Potassium 3.2 L Chloride 105 Carbon Dioxide 25 Anion Gap 10 BUN 15 D Creatinine 0.79 Estim Creat Clear Calc 69 Estimated GFR > 60 Glucose 75 POC Capillary Glucose 122 H Hemoglobin A1c 11.6 H C-Peptide 0.36 L Lactic Acid Calcium 8.8 Phosphorus Magnesium Total Bilirubin AST ALT Alkaline Phosphatase Total Protein Albumin Beta-Hydroxybutyrate/Acetoacetate TSH (Reflex) Urine Color Urine Appearance Urine pH Ur Specific [place] Urine Protein Urine Glucose (UA) Urine Ketones Ur Blood (Man) Urine Nitrate Urine Bilirubin Urine Urobilinogen Leukocyte Esterase Rfl Nasal MRSA (PCR) Not detected 03/05/24 03/05/24 03/06/24 15:56 20:54 04:51 WBC 2.9 L RBC 3.72 L Hgb 10.8 L Hct 31.7 L MCV 85.2 MCH 29.0 MCHC 34.1 RDW 11.9 Plt Count 184 MPV 11.4 H Immature Gran % (Auto) 0.7 H Neut % (Auto) 48.2 Lymph % (Auto) 28.8 [place] % (Auto) 17.5 H Eos % (Auto) 4.5 H Baso % (Auto) 0.3 Lymph # (Auto) 0.84 L [place] # (Auto) 0.5 Eos # (Auto) 0.1 Baso # (Auto) 0.0 Abs Immat Gran (auto) 0.02 Absolute Neuts (auto) 1.4 Absolute Nucleated RBC 0.000 Nucleated RBC % 0.0 Sodium 135 L Potassium 3.5 Chloride 101 Carbon Dioxide 24 Anion Gap 10 BUN 10 D Creatinine 0.67 L Estim Creat Clear Calc 81 Estimated GFR > 60 Glucose 276 H POC Capillary Glucose 150 H 270 H Hemoglobin A1c 11.6 H C-Peptide Lactic Acid Calcium 8.7 Phosphorus 3.1 Magnesium 1.7 Total Bilirubin 0.7 AST 30 ALT 27 Alkaline Phosphatase 55 Total Protein 9.0 H Albumin 3.4 L Beta-Hydroxybutyrate/Acetoacetate TSH (Reflex) 1.660 Urine Color Urine Appearance Urine pH Ur Specific [place] Urine Protein Urine Glucose (UA) Urine Ketones Ur Blood (Man) Urine Nitrate Urine Bilirubin Urine Urobilinogen Leukocyte Esterase Rfl Nasal MRSA (PCR) 03/06/24 07:45 WBC RBC Hgb Hct MCV MCH MCHC RDW Plt Count MPV Immature Gran % (Auto) Neut % (Auto) Lymph % (Auto) [place] % (Auto) Eos % (Auto) Baso % (Auto) Lymph # (Auto) [place] # (Auto) Eos # (Auto) Baso # (Auto) Abs Immat Gran (auto) Absolute Neuts (auto) Absolute Nucleated RBC Nucleated RBC % Sodium Potassium Chloride Carbon Dioxide Anion Gap BUN Creatinine Estim Creat Clear Calc Estimated GFR Glucose POC Capillary Glucose 271 H Hemoglobin A1c C-Peptide Lactic Acid Calcium Phosphorus Magnesium Total Bilirubin AST ALT Alkaline Phosphatase Total Protein Albumin Beta-Hydroxybutyrate/Acetoacetate TSH (Reflex) Urine Color Urine Appearance Urine pH Ur Specific [place] Urine Protein Urine Glucose (UA) Urine Ketones Ur Blood (Man) Urine Nitrate Urine Bilirubin Urine Urobilinogen Leukocyte Esterase Rfl Nasal MRSA (PCR)
[2024-03-06] MEDS: POTASSIUM CHLORIDE 20 MEQ ER TABLET 40 MEQ PO (09:50)
[2024-03-06] MEDS: metFORMIN HCL XR 500 MG TAB.SR.24H 1000 MG PO (09:50)
[2024-03-06 12:11] LABS: Glucose Point of Care 197 mg/dl (65-105)
--- NOTE | 2024-03-06 13:09 | PC.NURSE ---
This patient, Luis Sharpe, was received from [ICU ] on 03/06/24 at 08:00. Patient/family oriented to unit policies and routines
[2024-03-06] MEDS: ENOXAPARIN 40 MG/0.4 ML SYRINGE SUB-Q (14:44)
[2024-03-06 17:31] LABS: Glucose Point of Care 383 mg/dl (65-105)
[2024-03-06 20:20] LABS: Glucose Point of Care 270 mg/dl (65-105)
[2024-03-07 05:59] VITALS: BP 110/70; PULSE 59; RESP 18; TEMP 36.3; O2SAT 100
[2024-03-07 09:01] LABS: Glucose Point of Care 160 mg/dl (65-105)
[2024-03-07] MEDS: metFORMIN HCL XR 500 MG TAB.SR.24H 1000 MG PO (09:04)
[2024-03-07] MEDS: VITAMIN B COMPLEX CAPSULE 1 CAP PO (09:05)
[2024-03-07] MEDS: ROSUVASTATIN 10 MG TABLET PO (09:05)
[2024-03-07] MEDS: OMEGA 3 POLYUNSAT FATTY ACIDS 1 GM CAP PO (09:05)
[2024-03-07] MEDS: POTASSIUM CHLORIDE 10 MEQ ER TABLET PO (09:05)
[2024-03-07] MEDS: CLOPIDOGREL BISULFATE 75 MG TABLET PO (09:05)
[2024-03-07] MEDS: FERROUS SULFATE 325 MG TABLET DR BY MOUTH (09:05)
[2024-03-07] MEDS: amLODIPine BESYLATE 10 MG TABLET PO (09:05)
[2024-03-07] MEDS: FINASTERIDE 5 MG TABLET PO (09:05)
[2024-03-07] MEDS: INSULIN ASPART (*BKC) 100 UNITS/ML SUB-Q ×2 (09:06→12:46)
[2024-03-07] MEDS: INSULIN GLARGINE (*BKC) 100 UNITS/ML 20 UNITS SUB-Q (09:07)
--- NOTE | 2024-03-07 09:35 | PM.IMPN ---
Progress Note: A&P Assessment and Plan (1) Diabetic ketoacidosis: Code(s): E11.10 - Type 2 diabetes mellitus with ketoacidosis without coma Status: Acute (2) Type 2 diabetes mellitus: Qualifiers: Diabetes mellitus complication status: without complication Diabetes mellitus retirement insulin use: without predatory animal exterminator use Qualified Code(s): E11.9 - Type 2 diabetes mellitus without complications Code(s): E11.9 - Type 2 diabetes mellitus without complications Status: Acute (3) DKA (diabetic ketoacidosis): Code(s): E11.10 - Type 2 diabetes mellitus with ketoacidosis without coma Status: Acute (4) HTN (hypertension): Qualifiers: Hypertension type: primary hypertension Qualified Code(s): I10 - Essential (primary) hypertension Code(s): I10 - Essential (primary) hypertension Status: Acute (5) HLD (hyperlipidemia): Code(s): E78.5 - Hyperlipidemia, unspecified Status: Acute Plan (1) Diabetic ketoacidosis: Code(s): E11.10 - Type 2 diabetes mellitus with ketoacidosis without coma Status: Acute Assessment and Plan: 03/05/2024: Patient presented the ER with complains of been elevated blood sugars, nausea, vomiting, polydipsia and polyuria. He was diagnosed with DKA and treated with IV fluids and insulin infusion His anion gap has closed and patient has been transition to subcutaneous since He is tolerating p.o. diet Pending consult color straining bag washer and dietitian DKA resolved (2) Type 2 diabetes mellitus: Qualifiers: Diabetes mellitus predatory animal exterminator insulin use: without predatory animal exterminator use Diabetes mellitus complication status: without complication Qualified Code(s): E11.9 - Type 2 diabetes mellitus without complications Code(s): E11.9 - Type 2 diabetes mellitus without complications Status: Acute Assessment and Plan: Patient with history of diabetes, was initially on insulin which was discontinued in 2021 as his blood sugars will control with diet. -February 2024 commands A1c was elevated and upon seeing is primary care provider patient was started on metformin 500 mg daily despite which his blood sugars remained elevated between 300-400s. -restarted on metformin on 02/17/2024 -02/13/2024: Hemoglobin A1c was 8.3 but his most recent HbA1c on this hospitalization is 11.6 Resume metformin XR 1000 mg Increased Lantus to 20 unit 03/07 will Increase meal insulin of from 3 to 6 units continue sliding scale, and Lantus 20 units ac (3) HTN (hypertension): Qualifiers: Hypertension type: primary hypertension Qualified Code(s): I10 - Essential (primary) hypertension Code(s): I10 - Essential (primary) hypertension Status: Acute Assessment and Plan: Contain amlodipine (4) HLD (hyperlipidemia): Code(s): E78.5 - Hyperlipidemia, unspecified Status: Acute Assessment and Plan: Patient on rosuvastatin and [place] 3 fatty acids Continue Plan DVT prophylaxis: Lovenox Nutrition: Consistent carbohydrate diet Code Status: Full code Subjective Date/time seen: 03/07/24 09:35 Interval history: Patient is afebrile, blood pressure stable, glucose is better controlled but not in the target range. Patient denies chest pain abdomen pain nausea vomiting diarrhea, appetite is not good Exam Narrative: General: Pleasant gentleman in no acute distress HEENT:? Pupils equal and reactive, sclera is clear, dry oral mucosa Neck:? Supple, no cervical lymphadenopathy Respiratory:? Clear to auscultation bilaterally, no wheezing, adequate air and Cardiac:? S1-S2 normal, regular rate and rhythm Abdomen:? Soft, nontender, nondistended, normoactive bowel sound Extremities:? No edema, palpable pedal pulses Neuro:? Patient is awake, alert, oriented x3, answers to questions appropriately and follows simple commands in all extremities Skin:? Warm and dry Psych:? Normal mentation and affect Objective Data Vital Signs Vital Signs: Vital Signs - 24 hr 03/06/24 14:23 03/06/24 16:00 03/06/24 20:00 Temperature 97.6 F Pulse Rate 69 68 Respiratory Rate 16 18 Blood Pressure 119/68 Pulse Oximetry 100 100 Oxygen Delivery Room Air Room Air 03/06/24 20:39 03/07/24 05:59 Temperature 98.2 F 97.4 F L Pulse Rate 68 59 L Respiratory Rate 18 18 Blood Pressure 117/64 110/70 Pulse Oximetry 100 100 Oxygen Delivery Intake/Output Intake/Output: Intake & Output 03/04/24 03/05/24 03/06/24 03/07/24 23:59 23:59 23:59 23:59 Intake Total 2855.7 1520 400 Output Total 980 750 600 Balance 1875.7 770 -200 Meds/Results Medications: Active Medications Generic Name Dose Route Start Last Admin Trade Name Freq PRN Reason Stop Dose Admin Acetaminophen 650 mg 03/05/24 15:47 Acetaminophen 325 Mg Tablet PO Q6H PRN Mild Pain (1-3) or Fever Amlodipine Besylate 10 mg 03/06/24 09:00 03/07/24 09:05 Amlodipine Besylate 10 Mg Tablet PO 10 mg DAILY VERONIKA Administration Clopidogrel Bisulfate 75 mg 03/06/24 09:00 03/07/24 09:05 Clopidogrel Bisulfate 75 Mg Tablet PO 75 mg DAILY VERONIKA Administration Dextrose 12.5 gm 03/05/24 14:53 Dextrose 50% 25 Gm/50 Ml Syringe IV PUSH PRN PRN Hypoglycemia Protocol Enoxaparin Sodium 40 mg 03/05/24 14:00 03/06/24 14:44 Enoxaparin 40 Mg/0.4 Ml Syringe SUB-Q 40 mg Q24H VERONIKA Administration Ferrous Sulfate 325 mg 03/06/24 09:00 03/07/24 09:05 Ferrous Sulfate [address] BY MOUTH 325 mg DAILY VERONIKA Administration Finasteride 5 mg 03/06/24 09:00 03/07/24 09:05 Finasteride 5 Mg Tablet PO 5 mg DAILY VERONIKA Administration Fish Oil 1 gm 03/06/24 09:00 03/07/24 09:05 [place] 3 Polyunsat Fatty Acids 1 Gm Cap PO 1 gm DAILY VERONIKA Administration Glucagon 1 mg 03/05/24 14:53 Glucagon For Inj 1 Mg Vial IM PRN PRN Hypoglycemia Protocol Glucose 15 gm 03/05/24 14:53 Glucose Oral Gel 15 Gm Of Glucse In 37.5 Gm Tube PO PRN PRN Hypoglycemia Protocol Dextrose 1,000 mls @ 100 mls/hr 03/05/24 14:53 Dextrose 5% 1,000 Ml IVPB PRN PRN Hypoglycemia Protocol Insulin Aspart 3 - 6 units 03/05/24 17:00 03/07/24 09:07 Insulin Aspart (*Bkc) 100 Units/Ml SUB-Q Not Given TIDWM [facility] Protocol Insulin Aspart 1 - 3 units 03/05/24 21:00 03/06/24 20:19 Insulin Aspart (*Bkc) 100 Units/Ml SUB-Q 2 units HS VERONIKA Administration Protocol Insulin Aspart 3 units 03/06/24 12:00 03/07/24 09:06 Insulin Aspart (*Bkc) 100 Units/Ml 0.05 units/kg (3 units) 3 units SUB-Q Administration TIDWM [facility] Insulin Glargine 20 units 03/07/24 09:00 03/07/24 09:07 Insulin Glargine (*Bkc) 100 Units/Ml SUB-Q 20 units DAILY VERONIKA Administration Metformin HCl 1,000 mg 03/06/24 08:30 03/07/24 09:04 Metformin Hcl Xr 500 Mg Tab.Sr.24h PO 1,000 mg DAILY@0800 VERONIKA Administration Potassium Chloride 10 meq 03/06/24 09:00 03/07/24 09:05 Potassium Chloride 10 Meq Er Tablet PO 10 meq DAILY VERONIKA Administration Rosuvastatin Calcium 10 mg 03/06/24 09:00 03/07/24 09:05 Rosuvastatin 10 Mg Tablet PO 10 mg DAILY VERONIKA Administration Vitamin B Complex 1 cap 03/06/24 09:00 03/07/24 09:05 Vitamin B Complex Capsule PO 1 cap DAILY VERONIKA Administration Labs Labs: Laboratory Results - last 24 hr 03/06/24 03/06/24 03/06/24 12:01 17:20 19:56 POC Capillary Glucose 197 H 383 H 270 H 03/07/24 08:21 POC Capillary Glucose 160 H
[2024-03-07 10:21] LABS: Basophils Percent Auto 0.6 % (0.2-1.2); Eosinophils Absolute Auto 0.1 K/mm3 (0-0.3); Eosinophils Percent Auto 3.8 % (0-4.4); Hematocrit 32.5 % (42.0-52.0); Hemoglobin 10.8 g/dL (14.0-18.0); Immature Granulocyte Absolute 0.03 K/mm3 (0.00-0.031); Immature Granulocyte Percent A 0.9 % (0-0.5); Lymphocytes Absolute Auto 0.83 K/mm3 (0.9-3.2); Lymphocytes Percent Auto 24.1 % (18.3-44.2); Mean Corpuscular HGB Conc 33.2 g/dl (32-36); Mean Corpuscular Hemoglobin 28.8 pg (26-34); Mean Corpuscular Volume 86.7 fl (80-100); Mean Platelet Volume 12.2 fl (7.4-10.4); Monocytes Absolute Auto 0.6 K/mm3 (0.1-0.6); Monocytes Percent Auto 17.7 % (2.6-8.5); Neutrophils Absolute Auto 1.8 K/mm3 (1.3-6.7); Neutrophils Percent Auto 52.9 % (45.5-73.1); Platelet Count Result 185 k/mm3 (150-375); Red Blood Count 3.75 M/mm3 (4.6-6.20); Red Cell Distribution Width 12.1 % (11.5-14.5); White Blood Count 3.4 K/mm3 (4.5-10.0)
[2024-03-07 10:30] LABS: Anion Gap 8 mmol/L (4-12); Blood Urea Nitrogen 13 mg/dL (9-20); Calcium 8.6 mg/dL (8.4-10.2); Carbon Dioxide 22 mmol/L (22-30); Chloride 103 mmol/L (98-107); Estimated CRCL calculation 62 ml/min; Estimated Glomerular Filt Rate > 60; Glucose 342 mg/dL (65-110); Magnesium 1.5 mg/dL (1.6-2.3); Phosphorus 3.5 mg/dL (2.5-4.5); Potassium 3.4 mmol/L (3.4-5.0); Sodium 133 mmol/L (137-145)
[2024-03-07 12:25] LABS: Glucose Point of Care 253 mg/dl (65-105)
[2024-03-07] MEDS: INSULIN ASPART (*BKC) 100 UNITS/ML 6 UNITS SUB-Q ×2 (12:46→17:35)
[2024-03-07] MEDS: ENOXAPARIN 40 MG/0.4 ML SYRINGE SUB-Q (14:19)
--- NOTE | 2024-03-07 15:10 | PCCDE ---
Diabetes education f/up: met with pt and at bedside. Noted updated insulin orders: 03/07 20 units Lantus daily 03/07 lunch: increase Novolog to 6 units TID WM (continues on moderate dose correction TID WM and HS) POC BG today: 160-253 had a sticky note with c peptide result on it and wanted to know what it means. Discussed c peptide indicates how much insulin the pancreas is making and a low result is suggestive of Type 1 diabetes but further testing is needed to make definitive dx. Clarified that low insulin production caused the hyperglycemia and not the other way around as they thought. Encouraged to f/up with circulation supervisor. Pt sts he was also recently referred to medical services coordinator and wanted to know the difference. Encouraged to follow up with doctors recommendation/referrals. Encouraged OP referral for diabetes classes (covered by [employer]) and pt to call DM Specialist prn for questions.
[2024-03-07 16:00] VITALS: BP 108/66; PULSE 77; RESP 17; TEMP 36.6; O2SAT 100
[2024-03-07 17:02] LABS: Glucose Point of Care 147 mg/dl (65-105)
[2024-03-07 20:00] VITALS: PULSE 71; RESP 20; O2SAT 100
[2024-03-07 21:41] LABS: Glucose Point of Care 64 mg/dl (65-105)
[2024-03-07 22:19] VITALS: BP 104/72; PULSE 71; RESP 20; TEMP 36.8; O2SAT 100
[2024-03-08 06:24] LABS: Basophils Percent Auto 0.6 % (0.2-1.2); Eosinophils Absolute Auto 0.1 K/mm3 (0-0.3); Eosinophils Percent Auto 3.9 % (0-4.4); Hematocrit 32.1 % (42.0-52.0); Hemoglobin 10.6 g/dL (14.0-18.0); Immature Granulocyte Absolute 0.02 K/mm3 (0.00-0.031); Immature Granulocyte Percent A 0.6 % (0-0.5); Lymphocytes Absolute Auto 0.96 K/mm3 (0.9-3.2); Lymphocytes Percent Auto 26.8 % (18.3-44.2); Mean Corpuscular Hemoglobin 28.7 pg (26-34); Mean Platelet Volume 11.9 fl (7.4-10.4); Monocytes Absolute Auto 0.6 K/mm3 (0.1-0.6); Monocytes Percent Auto 15.6 % (2.6-8.5); Neutrophils Absolute Auto 1.9 K/mm3 (1.3-6.7); Neutrophils Percent Auto 52.5 % (45.5-73.1); Platelet Count Result 187 k/mm3 (150-375); Red Blood Count 3.69 M/mm3 (4.6-6.20); White Blood Count 3.6 K/mm3 (4.5-10.0)
[2024-03-08 06:33] LABS: Anion Gap 8 mmol/L (4-12); Blood Urea Nitrogen 11 mg/dL (9-20); Calcium 8.8 mg/dL (8.4-10.2); Carbon Dioxide 24 mmol/L (22-30); Chloride 103 mmol/L (98-107); Estimated CRCL calculation 82 ml/min; Estimated Glomerular Filt Rate > 60; Glucose 223 mg/dL (65-110); Magnesium 1.7 mg/dL (1.6-2.3); Phosphorus 3.9 mg/dL (2.5-4.5); Potassium 3.3 mmol/L (3.4-5.0); Sodium 135 mmol/L (137-145)
[2024-03-08 07:41] LABS: Glucose Point of Care 210 mg/dl (65-105)
[2024-03-08 08:00] VITALS: BP 115/74; PULSE 63; RESP 18; TEMP 36.1; O2SAT 100
--- NOTE | 2024-03-08 08:19 | PM.IMPN ---
Progress Note: A&P Assessment and Plan (1) Diabetic ketoacidosis: Code(s): E11.10 - Type 2 diabetes mellitus with ketoacidosis without coma Status: Acute (2) Type 2 diabetes mellitus: Qualifiers: Diabetes mellitus complication status: without complication Diabetes mellitus custodial insulin use: without long term care pharmacist use Qualified Code(s): E11.9 - Type 2 diabetes mellitus without complications Code(s): E11.9 - Type 2 diabetes mellitus without complications Status: Acute (3) HTN (hypertension): Qualifiers: Hypertension type: primary hypertension Qualified Code(s): I10 - Essential (primary) hypertension Code(s): I10 - Essential (primary) hypertension Status: Acute (4) HLD (hyperlipidemia): Code(s): E78.5 - Hyperlipidemia, unspecified Status: Acute Plan (1) Diabetic ketoacidosis: Code(s): E11.10 - Type 2 diabetes mellitus with ketoacidosis without coma Status: Acute Assessment and Plan: 03/05/2024: Patient presented the ER with complains of been elevated blood sugars, nausea, vomiting, polydipsia and polyuria. He was diagnosed with DKA and treated with IV fluids and insulin infusion His anion gap has closed and patient has been transition to subcutaneous since He is tolerating p.o. diet Pending consult certified adaptive physical educator and dietitian DKA resolved (2) Type 2 diabetes mellitus: Qualifiers: Diabetes mellitus custodial insulin use: without custodial use Diabetes mellitus complication status: without complication Qualified Code(s): E11.9 - Type 2 diabetes mellitus without complications Code(s): E11.9 - Type 2 diabetes mellitus without complications Status: Acute Assessment and Plan: Patient with history of diabetes, was initially on insulin which was discontinued in 2021 as his blood sugars will control with diet. -February 2024 commands A1c was elevated and upon seeing is primary care provider patient was started on metformin 500 mg daily despite which his blood sugars remained elevated between 300-400s. -restarted on metformin on 02/17/2024 -02/13/2024: Hemoglobin A1c was 8.3 but his most recent HbA1c on this hospitalization is 11.6 Resume metformin XR 1000 mg Increased Lantus to 20 unit 03/07 will Increase meal insulin of from 3 to 6 units continue sliding scale, and Lantus 20 units ac, aspart 4units ac 03/08 (3) HTN (hypertension): Qualifiers: Hypertension type: primary hypertension Qualified Code(s): I10 - Essential (primary) hypertension Code(s): I10 - Essential (primary) hypertension Status: Acute Assessment and Plan: on amlodipine 10 mg daily p.o. Will start amlodipine, start losartan 50 mg daily p.o. given history of diabetes to protect kidney (4) HLD (hyperlipidemia): Code(s): E78.5 - Hyperlipidemia, unspecified Status: Acute Assessment and Plan: Patient on rosuvastatin and [place] 3 fatty acids Continue Plan DVT prophylaxis: Lovenox Nutrition: Consistent carbohydrate diet Code Status: Full code Subjective Date/time seen: 03/08/24 08:19 Interval history: Patient is afebrile, blood pressure stable, glucose is better controlled but not in the target range. Patient denies chest pain abdomen pain nausea vomiting diarrhea, appetite is not good Exam Narrative: General: Pleasant gentleman in no acute distress HEENT:? Pupils equal and reactive, sclera is clear, dry oral mucosa Neck:? Supple, no cervical lymphadenopathy Respiratory:? Clear to auscultation bilaterally, no wheezing, adequate air and Cardiac:? S1-S2 normal, regular rate and rhythm Abdomen:? Soft, nontender, nondistended, normoactive bowel sound Extremities:? No edema, palpable pedal pulses Neuro:? Patient is awake, alert, oriented x3, answers to questions appropriately and follows simple commands in all extremities Skin:? Warm and dry Psych:? Normal mentation and affect Objective Data Vital Signs Vital Signs: Vital Signs - 24 hr 03/07/24 16:00 03/07/24 20:00 03/07/24 22:19 Temperature 97.8 F 98.2 F Pulse Rate 77 71 71 Respiratory Rate 17 20 20 Blood Pressure 108/66 104/72 Pulse Oximetry 100 100 100 Oxygen Delivery Room Air Intake/Output Intake/Output: Intake & Output 03/05/24 03/06/24 03/07/24 03/08/24 23:59 23:59 23:59 23:59 Intake Total 2855.7 1520 982 350 Output Total 824 354 6020 400 Balance 1875.7 770 -18 -50 Meds/Results Medications: Active Medications Generic Name Dose Route Start Last Admin Trade Name Freq PRN Reason Stop Dose Admin Acetaminophen 650 mg 03/05/24 15:47 Acetaminophen 325 Mg Tablet PO Q6H PRN Mild Pain (1-3) or Fever Amlodipine Besylate 10 mg 03/06/24 09:00 03/07/24 09:05 Amlodipine Besylate 10 Mg Tablet PO 10 mg DAILY VERONIKA Administration Clopidogrel Bisulfate 75 mg 03/06/24 09:00 03/07/24 09:05 Clopidogrel Bisulfate 75 Mg Tablet PO 75 mg DAILY VERONIKA Administration Dextrose 12.5 gm 03/05/24 14:53 Dextrose 50% 25 Gm/50 Ml Syringe IV PUSH PRN PRN Hypoglycemia Protocol Enoxaparin Sodium 40 mg 03/05/24 14:00 03/07/24 14:19 Enoxaparin 40 Mg/0.4 Ml Syringe SUB-Q 40 mg Q24H VERONIKA Administration Ferrous Sulfate 325 mg 03/06/24 09:00 03/07/24 09:05 Ferrous Sulfate [address] BY MOUTH 325 mg DAILY VERONIKA Administration Finasteride 5 mg 03/06/24 09:00 03/07/24 09:05 Finasteride 5 Mg Tablet PO 5 mg DAILY VERONIKA Administration Fish Oil 1 gm 03/06/24 09:00 03/07/24 09:05 [place] 3 Polyunsat Fatty Acids 1 Gm Cap PO 1 gm DAILY VERONIKA Administration Glucagon 1 mg 03/05/24 14:53 Glucagon For Inj 1 Mg Vial IM PRN PRN Hypoglycemia Protocol Glucose 15 gm 03/05/24 14:53 Glucose Oral Gel 15 Gm Of Glucse In 37.5 Gm Tube PO PRN PRN Hypoglycemia Protocol Dextrose 1,000 mls @ 100 mls/hr 03/05/24 14:53 Dextrose 5% 1,000 Ml IVPB PRN PRN Hypoglycemia Protocol Insulin Aspart 3 - 6 units 03/05/24 17:00 03/07/24 17:30 Insulin Aspart (*Bkc) 100 Units/Ml SUB-Q Not Given TIDWM [facility] Protocol Insulin Aspart 1 - 3 units 03/05/24 21:00 03/07/24 21:20 Insulin Aspart (*Bkc) 100 Units/Ml SUB-Q Not Given HS [facility] Protocol Insulin Aspart 6 units 03/07/24 12:00 03/07/24 17:35 Insulin Aspart (*Bkc) 100 Units/Ml SUB-Q 6 units TIDWM VERONIKA Administration Insulin Glargine 20 units 03/07/24 09:00 03/07/24 09:07 Insulin Glargine (*Bkc) 100 Units/Ml SUB-Q 20 units DAILY VERONIKA Administration Metformin HCl 1,000 mg 03/06/24 08:30 03/07/24 09:04 Metformin Hcl Xr 500 Mg Tab.Sr.24h PO 1,000 mg DAILY@0800 VERONIKA Administration Potassium Chloride 10 meq 03/06/24 09:00 03/07/24 09:05 Potassium Chloride 10 Meq Er Tablet PO 10 meq DAILY VERONIKA Administration Rosuvastatin Calcium 10 mg 03/06/24 09:00 03/07/24 09:05 Rosuvastatin 10 Mg Tablet PO 10 mg DAILY VERONIKA Administration Vitamin B Complex 1 cap 03/06/24 09:00 03/07/24 09:05 Vitamin B Complex Capsule PO 1 cap DAILY VERONIKA Administration Labs Labs: Laboratory Results - last 24 hr 03/07/24 03/07/24 03/07/24 08:21 10:00 12:01 WBC 3.4 L RBC 3.75 L Hgb 10.8 L Hct 32.5 L MCV 86.7 MCH 28.8 MCHC 33.2 RDW 12.1 Plt Count 185 MPV 12.2 H Immature Gran % (Auto) 0.9 H Neut % (Auto) 52.9 Lymph % (Auto) 24.1 [place] % (Auto) 17.7 H Eos % (Auto) 3.8 Baso % (Auto) 0.6 Lymph # (Auto) 0.83 L [place] # (Auto) 0.6 Eos # (Auto) 0.1 Baso # (Auto) 0.0 Abs Immat Gran (auto) 0.03 Absolute Neuts (auto) 1.8 Absolute Nucleated RBC 0.000 Nucleated RBC % 0.0 Sodium 133 L Potassium 3.4 Chloride 103 Carbon Dioxide 22 Anion Gap 8 BUN 13 Creatinine 0.89 Estim Creat Clear Calc 62 Estimated GFR > 60 Glucose 342 H POC Capillary Glucose 160 H 253 H Calcium 8.6 Phosphorus 3.5 Magnesium 1.5 L 03/07/24 03/07/24 03/08/24 16:35 21:13 06:01 WBC 3.6 L RBC 3.69 L Hgb 10.6 L Hct 32.1 L MCV 87.0 MCH 28.7 MCHC 33.0 RDW 12.0 Plt Count 187 MPV 11.9 H Immature Gran % (Auto) 0.6 H Neut % (Auto) 52.5 Lymph % (Auto) 26.8 [place] % (Auto) 15.6 H Eos % (Auto) 3.9 Baso % (Auto) 0.6 Lymph # (Auto) 0.96 [place] # (Auto) 0.6 Eos # (Auto) 0.1 Baso # (Auto) 0.0 Abs Immat Gran (auto) 0.02 Absolute Neuts (auto) 1.9 Absolute Nucleated RBC 0.000 Nucleated RBC % 0.0 Sodium 135 L Potassium 3.3 L Chloride 103 Carbon Dioxide 24 Anion Gap 8 BUN 11 Creatinine 0.64 L Estim Creat Clear Calc 82 Estimated GFR > 60 Glucose 223 H POC Capillary Glucose 147 H 64 L Calcium 8.8 Phosphorus 3.9 Magnesium 1.7 03/08/24 07:38 WBC RBC Hgb Hct MCV MCH MCHC RDW Plt Count MPV Immature Gran % (Auto) Neut % (Auto) Lymph % (Auto) [place] % (Auto) Eos % (Auto) Baso % (Auto) Lymph # (Auto) [place] # (Auto) Eos # (Auto) Baso # (Auto) Abs Immat Gran (auto) Absolute Neuts (auto) Absolute Nucleated RBC Nucleated RBC % Sodium Potassium Chloride Carbon Dioxide Anion Gap BUN Creatinine Estim Creat Clear Calc Estimated GFR Glucose POC Capillary Glucose 210 H Calcium Phosphorus Magnesium
--- NOTE | 2024-03-08 08:22 | P.DS_ITS ---
DS: Admitting Diagnosis Discharge Date 03/08/24 Admitting Diagnosis (1) Diabetic ketoacidosis: Code(s): E11.10 - Type 2 diabetes mellitus with ketoacidosis without coma Status: Acute (2) Type 2 diabetes mellitus: Qualifiers: Diabetes mellitus complication status: without complication Diabetes mellitus terminal worker insulin use: without terminal worker use Qualified Code(s): E11.9 - Type 2 diabetes mellitus without complications Code(s): E11.9 - Type 2 diabetes mellitus without complications Status: Acute (3) HTN (hypertension): Qualifiers: Hypertension type: primary hypertension Qualified Code(s): I10 - Essential (primary) hypertension Code(s): I10 - Essential (primary) hypertension Status: Acute (4) HLD (hyperlipidemia): Code(s): E78.5 - Hyperlipidemia, unspecified Status: Acute DS: Discharge Diagnosis Discharge Diagnosis (1) Diabetic ketoacidosis: Code(s): E11.10 - Type 2 diabetes mellitus with ketoacidosis without coma Status: Acute (2) Type 2 diabetes mellitus: Qualifiers: Diabetes mellitus terminal worker insulin use: without skilled nursing use Diabetes mellitus complication status: without complication Qualified Code(s): E11.9 - Type 2 diabetes mellitus without complications Code(s): E11.9 - Type 2 diabetes mellitus without complications Status: Acute (3) HTN (hypertension): Qualifiers: Hypertension type: primary hypertension Qualified Code(s): I10 - Essential (primary) hypertension Code(s): I10 - Essential (primary) hypertension Status: Acute (4) HLD (hyperlipidemia): Code(s): E78.5 - Hyperlipidemia, unspecified Status: Acute DS: Summary Hospital Course Hospital Course: This is a pleasant 63-year-old male with type 2 diabetes mellitus, hypertension, hyperlipidemia, and benign prostatic hyperplasia who presented to the emergency department with high blood sugar. The patient provides the following history. He was previously on insulin but got his diabetes under control and has only been taking only metformin since 2021. Hemoglobin A1c in July 2023 was 6.2% however a few weeks ago it had jumped to 8.3% and since that time he has been more diligent about checking his glucose and reports that they have been running in the 300s to 400s. With further questioning he does admit that he has not been following a good diet over the last couple of months due to the holidays. He also endorses polydipsia, polyuria, and more recently nausea and vomiting. He denies fever, chills, sweats, recent cold and flu symptoms, chest pain, shortness of breath, diarrhea, and dysuria. In the ED: He was afebrile on arrival with stable vital signs. Labs were significant for a sodium of 133, potassium 4.6, chloride 96, carbon dioxide 21, anion gap 16, BUN 20, creatinine 0.88, glucose 530, beta hydroxybutyrate 2.50. Urinalysis was positive for 3+ glucose and 1+ ketones. He was given a 2 L normal saline bolus and was started on insulin drip and he is being admitted to the ICU in this setting for further treatment of diabetic ketoacidosis. The following med issues have been addressed during hospitalization (1) Diabetic ketoacidosis: Code(s): E11.10 - Type 2 diabetes mellitus with ketoacidosis without coma Status: Acute Assessment and Plan: 03/05/2024: Patient presented the ER with complains of been elevated blood sugars, nausea, vomiting, polydipsia and polyuria. He was diagnosed with DKA and treated with IV fluids and insulin infusion His anion gap has closed and patient has been transition to subcutaneous since He is tolerating p.o. diet Pending consult parent educator and dietitian DKA resolved (2) Type 2 diabetes mellitus: Qualifiers: Diabetes mellitus skilled nursing insulin use: without skilled nursing use Diabetes mellitus complication status: without complication Qualified Code(s): E11.9 - Type 2 diabetes mellitus without complications Code(s): E11.9 - Type 2 diabetes mellitus without complications Status: Acute Assessment and Plan: Patient with history of diabetes, was initially on insulin which was discontinued in 2021 as his blood sugars will control with diet. -February 2024 commands A1c was elevated and upon seeing is primary care provider patient was started on metformin 500 mg daily despite which his blood sugars remained elevated between 300-400s. -restarted on metformin on 02/17/2024 -02/13/2024: Hemoglobin A1c was 8.3 but his most recent HbA1c on this hospitalization is 11.6 Resume metformin XR 1000 mg Increased Lantus to 20 unit 03/07 will Increase meal insulin of from 3 to 6 units continue sliding scale, and Lantus 20 units ac, aspart 4units ac 03/08 (3) HTN (hypertension): Qualifiers: Hypertension type: primary hypertension Qualified Code(s): I10 - Essential (primary) hypertension Code(s): I10 - Essential (primary) hypertension Status: Acute Assessment and Plan: on amlodipine 10 mg daily p.o. Will start amlodipine, start losartan 50 mg daily p.o. given history of diabetes to protect kidney (4) HLD (hyperlipidemia): Code(s): E78.5 - Hyperlipidemia, unspecified Status: Acute Assessment and Plan: Patient on rosuvastatin and [place] 3 fatty acids Continue Plan DVT prophylaxis: Lovenox Nutrition: Consistent carbohydrate diet Code Status: Full code Time Spent with Patient Time attestation: Total time spent providing and/or coordinating discharge services: Exam Narrative: General: Pleasant gentleman in no acute distress HEENT:? Pupils equal and reactive, sclera is clear, dry oral mucosa Neck:? Supple, no cervical lymphadenopathy Respiratory:? Clear to auscultation bilaterally, no wheezing, adequate air and Cardiac:? S1-S2 normal, regular rate and rhythm Abdomen:? Soft, nontender, nondistended, normoactive bowel sound Extremities:? No edema, palpable pedal pulses Neuro:? Patient is awake, alert, oriented x3, answers to questions appropriately and follows simple commands in all extremities Skin:? Warm and dry Psych:? Normal mentation and affect DS: Data Data Completed and Pending Labs on day of discharge: Labs from last 24 hours 03/08/24 03/08/24 03/07/24 07:38 06:01 21:13 WBC 3.6 L RBC 3.69 L Hgb 10.6 L Hct 32.1 L MCV 87.0 MCH 28.7 MCHC 33.0 RDW 12.0 Plt Count 187 MPV 11.9 H Immature Gran % (Auto) 0.6 H Neut % (Auto) 52.5 Lymph % (Auto) 26.8 [place] % (Auto) 15.6 H Eos % (Auto) 3.9 Baso % (Auto) 0.6 Lymph # (Auto) 0.96 [place] # (Auto) 0.6 Eos # (Auto) 0.1 Baso # (Auto) 0.0 Abs Immat Gran (auto) 0.02 Absolute Neuts (auto) 1.9 Absolute Nucleated RBC 0.000 Nucleated RBC % 0.0 Sodium 135 L Potassium 3.3 L Chloride 103 Carbon Dioxide 24 Anion Gap 8 BUN 11 Creatinine 0.64 L Estim Creat Clear Calc 82 Estimated GFR > 60 Glucose 223 H POC Capillary Glucose 210 H 64 L Calcium 8.8 Phosphorus 3.9 Magnesium 1.7 03/07/24 03/07/24 03/07/24 16:35 12:01 10:00 WBC 3.4 L RBC 3.75 L Hgb 10.8 L Hct 32.5 L MCV 86.7 MCH 28.8 MCHC 33.2 RDW 12.1 Plt Count 185 MPV 12.2 H Immature Gran % (Auto) 0.9 H Neut % (Auto) 52.9 Lymph % (Auto) 24.1 [place] % (Auto) 17.7 H Eos % (Auto) 3.8 Baso % (Auto) 0.6 Lymph # (Auto) 0.83 L [place] # (Auto) 0.6 Eos # (Auto) 0.1 Baso # (Auto) 0.0 Abs Immat Gran (auto) 0.03 Absolute Neuts (auto) 1.8 Absolute Nucleated RBC 0.000 Nucleated RBC % 0.0 Sodium 133 L Potassium 3.4 Chloride 103 Carbon Dioxide 22 Anion Gap 8 BUN 13 Creatinine 0.89 Estim Creat Clear Calc 62 Estimated GFR > 60 Glucose 342 H POC Capillary Glucose 147 H 253 H Calcium 8.6 Phosphorus 3.5 Magnesium 1.5 L 03/07/24 08:21 WBC RBC Hgb Hct MCV MCH MCHC RDW Plt Count MPV Immature Gran % (Auto) Neut % (Auto) Lymph % (Auto) [place] % (Auto) Eos % (Auto) Baso % (Auto) Lymph # (Auto) [place] # (Auto) Eos # (Auto) Baso # (Auto) Abs Immat Gran (auto) Absolute Neuts (auto) Absolute Nucleated RBC Nucleated RBC % Sodium Potassium Chloride Carbon Dioxide Anion Gap BUN Creatinine Estim Creat Clear Calc Estimated GFR Glucose POC Capillary Glucose 160 H Calcium Phosphorus Magnesium Discharge Plan Discharge Attending physician on discharge: Iftikhar Prieto Consulting providers: Savanah Virgen Discharging Clinician: Iftikhar Prieto Anticipated Discharge Date/Time: 03/08/24 09:23 Patient Disposition: Home, Self-Care Activity: as tolerated Diet: as tolerated and diabetic Patient Instructions: Antibiotic Form, Diabetic Ketoacidosis (DC) Patient Language: [place] Stand Alone Forms: General Discharge Information Follow-up/Referrals: Leodan Rahman MD [Primary Care Provider] - (Patient needs to see primary care doctor in 1 week) Discharge Medications: New losartan [Cozaar] 50 mg Tablet 50 mg PO DAILY Qty: 60 0RF insulin glargine [Lantus U-100 Insulin] 100 unit/mL Solution 20 unit subcut QHS Qty: 10 1RF insulin aspart U-100 [Novolog U-100 Insulin aspart] 100 unit/mL Solution 3 - 6 unit subcut TIDWM Qty: 10 0RF Protocol: Insulin Corrective Moderate-Dose Condition: glucose < 70 mg/dl Dose/Route: Follow hypoglycemia orders Condition: glucose 70-200 mg/dl Dose/Route: No additional insulin Condition: glucose 201-250 mg/dl Dose/Route: 3 units sub-Q Condition: glucose 251-300 mg/dl Dose/Route: 4 units sub-Q Condition: glucose 301-350 mg/dl Dose/Route: 5 units sub-Q Condition: glucose 351-400 mg/dl Dose/Route: 6 units sub-Q Condition: glucose > 400 mg/dl Dose/Route: Call Protocol Text: *No Correction Dose at Bedtime* Rx Instructions: Instruction glucose < 70 mg/dl Follow hypoglycemia orders glucose 70-200 mg/dl No additional insulin glucose 201-250 mg/dl 3 units sub-Q glucose 251-300 mg/dl 4 units sub-Q glucose 301-350 mg/dl 5 units sub-Q glucose 351-400 mg/dl 6 units sub-Q glucose > 400 mg/dl Call insulin aspart U-100 [Novolog U-100 Insulin aspart] 100 unit/mL Solution 1 - 3 unit subcut HS Qty: 10 0RF Protocol: Insulin Corrective Moderate-Dose Condition: glucose < 70 mg/dl Dose/Route: Follow hypoglycemia orders Condition: glucose 70-200 mg/dl Dose/Route: No additional insulin Condition: glucose 201-250 mg/dl Dose/Route: 1 units sub-Q Condition: glucose 251-300 mg/dl Dose/Route: 2 units sub-Q Condition: glucose 301-350 mg/dl Dose/Route: 2 units sub-Q Condition: glucose 351-400 mg/dl Dose/Route: 3 units sub-Q Condition: glucose > 400 mg/dl Dose/Route: Call MD Rx Instructions: Condition Dose/Route Instruction glucose < 70 mg/dl Follow hypoglycemia orders glucose 70-200 mg/dl No additional insulin glucose 201-250 mg/dl 1 units sub-Q glucose 251-300 mg/dl 2 units sub-Q glucose 301-350 mg/dl 2 units sub-Q glucose 351-400 mg/dl 3 units sub-Q glucose > 400 mg/dl Call MD Protocol Text insulin aspart U-100 [Novolog U-100 Insulin aspart] 100 unit/mL Solution 4 unit subcut TIDWM Qty: 10 0RF Continued (DME) blood-glucose meter Misc See Rx Instructions miscellaneous .MEDSUPPLY Qty: 1 0RF Rx Instructions: As directed to check blood sugar qam (DME) Blood Glucose Test Strip See Rx Instructions .MEDSUPPLY Qty: 100 5RF Rx Instructions: As directed to check blood sugar once daily (DME) lancets Misc See Rx Instructions .MEDSUPPLY Qty: 200 5RF Rx Instructions: As directed to check blood sugar once daily chlorthalidone 25 mg tablet 25 mg PO DAILY 90 Days Qty: 90 3RF finasteride 5 mg tablet 5 mg PO DAILY Qty: 90 3RF rosuvastatin [Crestor] 10 mg tablet 10 mg PO DAILY Qty: 90 3RF metformin 500 mg tablet extended release 24 hr 2,000 mg PO DAILY 30 Days Qty: 120 2RF Rx Instructions: Take with largest meal of the day. Take 1 tablet daily x 1 week. Then 2 tablets daily x 1 week. Then 3 tablets daily x 1 week. Then 4 tablets daily. (DME) pen needle, diabetic [Pen Needle] 32 gauge x 5/32 needle See Rx Instructions .ROUTE .MEDSUPPLY Qty: 100 1RF Rx Instructions: As directed daily with lantus insulin omega-3 fatty acids [Fish Oil Concentrate] 1,000 mg capsule 1,000 mg PO DAILY vitamin B complex [B Complex-Vitamin B12] Tablet 1 tablet PO DAILY ferrous sulfate 325 mg (65 mg iron) tablet 325 mg PO DAILY Qty: 90 0RF potassium chloride 8 mEq capsule, extended release 8 meq PO DAILY Qty: 90 3RF clopidogrel 75 mg tablet 75 mg PO DAILY Qty: 90 3RF Discontinued amlodipine 10 mg tablet 10 mg PO DAILY Qty: 90 3RF Date of admission: 03/05/24 12:38 Primary Care Provider: Leodan Rahman Admitting Provider: Iftikhar Prieto Attending physician on admission: Iftikhar Prieto Condition: Critical
[2024-03-08] MEDS: OMEGA 3 POLYUNSAT FATTY ACIDS 1 GM CAP PO (10:21)
[2024-03-08] MEDS: CLOPIDOGREL BISULFATE 75 MG TABLET PO (10:21)
[2024-03-08] MEDS: ROSUVASTATIN 10 MG TABLET PO (10:21)
[2024-03-08] MEDS: metFORMIN HCL XR 500 MG TAB.SR.24H 1000 MG PO (10:21)
[2024-03-08] MEDS: LOSARTAN POTASSIUM 50 MG TABLET PO (10:22)
[2024-03-08] MEDS: FINASTERIDE 5 MG TABLET PO (10:22)
[2024-03-08] MEDS: VITAMIN B COMPLEX CAPSULE 1 CAP PO (10:22)
[2024-03-08] MEDS: INSULIN ASPART (*BKC) 100 UNITS/ML SUB-Q ×3 (10:22→12:18)
[2024-03-08] MEDS: POTASSIUM CHLORIDE 10 MEQ ER TABLET PO (10:22)
[2024-03-08] MEDS: FERROUS SULFATE 325 MG TABLET DR BY MOUTH (10:23)
[2024-03-08] MEDS: INSULIN GLARGINE (*BKC) 100 UNITS/ML 20 UNITS SUB-Q (10:23)
[2024-03-08 11:51] LABS: Glucose Point of Care 260 mg/dl (65-105)
[2024-03-09 02:38] LABS: Islet Cell Antibody Screen NEGATIVE (NEGATIVE)
== END 2024-03-08 12:33 | disposition home or self-care (01) ==
LOC: ANHED 11:19 → ANHICU 13:58 → ANH2MED 03-06 08:48
PROVIDERS: Internal Medicine; Physician Assistant; Admitting Provider Hospitalist; Emergency Provider Emergency Medicine; PCP Family Medicine; Visit Provider Hospitalist
DX: E11.10 Type 2 diabetes mellitus with ketoacidosis without coma (principal); I10 Essential (primary) hypertension; E78.5 Hyperlipidemia, unspecified; N40.0 Benign prostatic hyperplasia without lower urinary tract symptoms; K21.9 Gastro-esophageal reflux disease without esophagitis; M19.90 Unspecified osteoarthritis, unspecified site; Z79.84 Long term (current) use of oral hypoglycemic drugs; Z79.899 Other long term (current) drug therapy; Z86.73 Personal history of transient ischemic attack (TIA), and cerebral infarction without residual deficits
CPT/HCPCS: 36415; 80048; 80053; 81003; 82010; 82948; 83036; 83605; 83735; 84100; 84443; 84681; 85025; 86341; 87641; 96361; 96365; 96366; 96368; 99285; A9270; G0378; J1650; J1815; J3480; J7030

== ENCOUNTER 2024-03-21 14:55 | Outpatient (CLI) | payer MEDICARE, SELFPAY ==
[2024-03-21 15:09] LABS: Basophils Percent Auto 0.5 % (0.2-1.2); Eosinophils Absolute Auto 0.1 K/mm3 (0-0.3); Eosinophils Percent Auto 3.4 % (0-4.4); Hematocrit 34.7 % (42.0-52.0); Hemoglobin 10.5 g/dL (14.0-18.0); Immature Granulocyte Absolute 0.02 K/mm3 (0.00-0.031); Immature Granulocyte Percent A 0.5 % (0-0.5); Lymphocytes Absolute Auto 0.79 K/mm3 (0.9-3.2); Lymphocytes Percent Auto 19.4 % (18.3-44.2); Mean Corpuscular HGB Conc 30.3 g/dl (32-36); Mean Corpuscular Hemoglobin 29.7 pg (26-34); Mean Corpuscular Volume 98.3 fl (80-100); Mean Platelet Volume 9.9 fl (7.4-10.4); Monocytes Absolute Auto 0.5 K/mm3 (0.1-0.6); Monocytes Percent Auto 12.3 % (2.6-8.5); Neutrophils Absolute Auto 2.6 K/mm3 (1.3-6.7); Neutrophils Percent Auto 63.9 % (45.5-73.1); Platelet Count Result 242 k/mm3 (150-375); Red Blood Count 3.53 M/mm3 (4.6-6.20); White Blood Count 4.1 K/mm3 (4.5-10.0)
--- OUTSIDE RECORDS SUMMARY | 2024-03-21 15:37 | XMS_ITS | Clinical Summary ---
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 Gender Identity Not on file Sexual Orientation Not on file Plan of Treatment Upcoming Encounters Date Type Department Care Team (Late st Contact Info) Description 05/09/2024 2:00 PM CDT Office Visit [facility] - Endocrinology [facility] [address] [place] [address] Tania Ordonez MD [address] [address] Health Maintenance Due Date Last Done Comments Hepatitis C Virus (HCV) Screening 1960 TdaP Immunization 1960 Colonoscopy 11/09/2003 Colorectal Cancer Screening 11/09/2003 Cologuard 2008 Immunochemical Fecal Occult Blood 2008 Pneumococcal Immunization (50+ years) (1 of 1 - PCV) 2008 PSA Discussion 2013 SARS-COV-2 Immunization () 10/16/2023 11/21/2021, 07/05/2021, 11/30/2020, Additional history exists Respiratory Syncytial Virus (RSV) Immunization (Adult) (1 - 1-dose 75+ series) 2033 Zoster Immunization Completed 11/21/2021, 2 Influenza Immunization Completed 4, 01/24/2023, 12/12/2019 Hepatitis B Immunization Aged Out No longer eligible based on patient's age to complete this topic Meningococcal Immunization (ACWY) Aged Out No longer eligible based on patient's age to complete this topic Rotavirus Immunization Aged Out No lo nger eligible based on patient's age to complete this topic Insurance [facility] Care Teams Senior Project Leader/Team Lead Relationship Specialty Start Date End Date Leodan Rahman MD [address] [place] [address] PCP - General Family Medicine 03/15/24
--- OUTSIDE RECORDS SUMMARY | 2024-03-21 15:37 | XMS_ITS | Clinical Summary ---
Author Organization [facility] [employer] Address [address] [place] [address] Care Team Providers Care Electronics Engineering Technologist Name Role Phone Unavailable Primary Care Provider Unavailabl e Source Comments [facility],non-owned Affiliates and Associated Physician Practices is amultiple site organization consisting of ambulatory clinics and hospital sitesin [place], [place], [place]. This disclosure is being madepursuant to the Care Everywhere program and may not contain all information available regarding this patient. Last updated 17.[facility] [employer] Allergies Active Allergy Reactions Criticality Noted Date Comments Lisinopril Swelling 12/12/2019 Niacin Other 12/12/2019 flushing Immunizations Name Administration Dates Next Due INFLUENZA VACCINE, QUADR. (F LUZONE; FLULAVAL; FLUARIX; AFLURIA QUADRIVALENT; 6MO+), 0.5 ML (IIV4) 12/12/2019 Social History Tobacco Use Types Packs/Day Years Used Date Smoking Tobacco: Never Assessed Sex and Gender Information Value Date Recorded Sex Assigned at Not on file Gender Identity Not on file Sexual Orientation Not on file Plan of Treatment Health Maintenance Due Date Last Done Comments COLOGUARD (AGES 45-75) - COL ON CA SCREENING 1958 COLON MONITORING 1958 COLONOSCOPY - COLON CA SCREENING 1958 CT COLONOGRAPHY - COLON CA SCREENING 1958 Colorectal Cancer Screening 1958 FIT - COLON CA SCREENING 1958 FLEX SIG - COLON CA SCREENING 1958 LIPID TESTING 1958 HIV SCREENING 1973 HEPATITIS C SCREENING 11/03/1976 DTAP/TDAP/TD VACCINES (1 - Tdap) 1977 PNEUMOCOCCAL VACCINE 50+ (1 of 1 - PCV) 2008 ZOSTER VACCINE (1 of 2) 2008 COVID-19 VACCINE (2023-2 5 season) 2023 INFLUENZA VACCINE (#1) 2023 12/12/2019 DEPRESSION SCREENING 02/15/2024 Respiratory Syncytial Virus (RSV) Vaccine Pt: or over 60 yrs (1 - 1-dose 75+ series) 2033 HEPATITIS B VACCINE Aged Out No longe r eligible based on patient's age to complete this topic HIB VACCINE Aged Out No longer eligi ble based on patient's age to complete this topic HPV VACCINE Aged Out No longer eligi ble based on patient's age to complete this topic MENINGOCOCCAL (Group B) VACCINE Aged Out No longer eligible based on patient's age to complete this topic MENINGOCOCCAL VACCINE Aged Out No samanta jennifer eligible based on patient's age to complete this topic
--- OUTSIDE RECORDS SUMMARY | 2024-03-21 15:37 | XMS_ITS | Patient Health Summary ---
Author Organization [facility] Address [address] [place] [address] Care Team Providers Care Marketing Associate Name Role Phone Unavailable Primary Care Provider Unavailabl e Note from [facility],non-owned Affiliates and Associated Physician Practices is amultiple site organization consisting of ambulatory clinics and hospital sitesin [place], [place], [place]. This disclosure is being madepursuant to the Care Everywhere program and may not contain all information available regarding this patient. Last updated 17.[facility] Allergies * Lisinopril(Swelling) * Niacin(Other) Immunizations * INFLUENZA VACCINE, QUADR. (FLUZONE; FLULAVAL; FLUARIX; AFLURIA QUADRIVALENT; 6MO+), 0.5 ML (IIV4)(Given 12/12/2019) Social History Tobacco Use Types Packs/Day Years Used Date Smoking Tobacco: Never Assessed Sex and Gender Information Value Date Recorded Sex Assigned at Not on file Gender Identity Not on file Sexual Orientation Not on file
--- OUTSIDE RECORDS SUMMARY | 2024-03-21 15:37 | XMS_ITS | Encounter Summary ---
Author Organization [facility] [employer] [facility] Address [address] [place] [address] Care Team Providers Care Cad Specialist Name Role Phone Unavailable Primary Care Provider Unavailabl e Encounter Details Date Type Department Care Team (Late st Contact Info) Description 03/21/2024 1:30 PM COMPUTER PATTERNMAKER Office Visit [facility] Oncology and Hematology - Cristi [address] [facility] [address] [place] [address] Hunter Jacome MD [address] [facility] [address] [place] [address] Plasma cell disorder (Primary Dx); Chronic anemia; Lymphadenopathy Social History Tobacco Use Types Packs/Day Years Used Date Smoking Tobacco: Never Smokeless Tobacco: Never Tobacco Cessation:Counseling Given: Not Answered Alcohol Use Standard Drinks/Week Comments Yes 0 (1 standard drink = 0.6 oz pur e alcohol) occassionally on holidays Sex and Gender Information Value Date Recorded Sex Assigned at Not on file Legal Sex Male 5:24 AM COMPUTER PATTERNMAKER Gender Identity Not on file Sexual Orientation Not on file documented as of this encounter Last Filed Vital Signs Vital Sign Reading Time Taken Comments Blood Pressure 146/91 03/21/2024 1:51 PM COMPUTER PATTERNMAKER Pulse 61 03/21/2024 1:51 PM COMPUTER PATTERNMAKER Temperature 36.2 C (97.2 F) 03/21/2024 1:51 PM COMPUTER PATTERNMAKER Respiratory Rate 16 03/21/2024 1:51 PM COMPUTER PATTERNMAKER Oxygen Saturation 90% 03/21/2024 1:51 PM COMPUTER PATTERNMAKER Inhaled Oxygen Concentration - - Weight 66.2 kg (146 lb) 03/21/2024 1:51 PM COMPUTER PATTERNMAKER Height 167.6 cm (5' 6 ) 03/21/2024 1:51 PM COMPUTER PATTERNMAKER Body Mass Index 23.57 03/21/2024 1:51 PM COMPUTER PATTERNMAKER documented in this encounter Plan of Treatment Upcoming Encounters Date Type Department Care Team (Late st Contact Info) Description 04/03/2024 1:00 PM COMPUTER PATTERNMAKER Office Visit [facility] Oncology and Hematology - Cristi [address] [facility] [address] [place] [address] Hunter Jacome MD [address] [facility] [address] [place] [address] Scheduled Orders Name Type Priority Associated Diagnoses Orde r Schedule CBC WITH DIFFERENTIAL Lab Stat Plasma cell disorder Expected: 03/21/2024, Expires: 03/21/2025 COMPREHENSIVE METABOLIC PANEL Lab Stat Plasma cell disorder Expected: 03/21/2024, Expires: 03/21/2025 IMMUNOGLOBULINS IGG IGA IGM Lab Routine Plasma cell disorder Expected: 03/21/2024, Expires: 03/21/2025 KAPPA/LAMBDA, FREE LIGHT CHAINS Lab Routine Plasma cell disorder Expected: 03/21/2024, Expires: 03/21/2025 PROTEIN ELECTROPHORESIS W/REFLEX,SERUM Lab Routine Plasma cell disorder Expected: 03/21/2024, Expires: 03/21/2025 FERRITIN Lab Routine Chronic anemia Expected: 03/21/2024, Expires: 03/21/2025 IRON, TIBC, AND PERCENT SATURATION Lab Routine Chronic anemia Expected: 03/21/2024, Expires: 03/21/2025 LACTATE DEHYDROGENASE Lab Routine Chronic anemia Expected: 03/21/2024, Expires: 03/21/2025 METHYLMALONIC ACID Lab Routine Chronic anemia Expected: 03/21/2024, Expires: 03/21/2025 FLOW CYTOMETRY PANEL Lab Routine Lymphadenopathy Expected: 03/21/2024, Expires: 03/21/2025 TRANSFERRIN RECEPTOR TFR SOLUBLE Lab Routine Chronic anemia Expected: 03/21/2024, Expires: 03/21/2025 VITAMIN B12 AND FOLATE Lab Routine Chronic anemia Expected: 03/21/2024, Expires: 03/21/2025 documented as of this encounter Visit Diagnoses Diagnosis Plasma cell disorder- Primary Other specified disease of white blood cells Chronic anemia Anemia, unspecified Lymphadenopathy Enlargement of lymph nodes documented in this encounter
--- OUTSIDE RECORDS SUMMARY | 2024-03-21 15:37 | XMS_ITS | Encounter Summary ---
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
--- OUTSIDE RECORDS SUMMARY | 2024-03-21 15:37 | XMS_ITS | Encounter Summary ---
Author Organization [facility] Address [address] [place] [address] Care Team Providers Care Funeral Director/Embalmer Name Role Phone Unavailable Primary Care Provider Unavailabl e Encounter Details Date Type Department Care Team (Late st Contact Info) Description 01/28/2001 Outpatient Historical [facility] Brodie Chand MD [address] [place] [address] [place], Authorized P NO ADDRESS ON FILE CONTUSION SHOULDER REG (Primary Dx) Social History Tobacco Use Types Packs/Day Years Used Date Smoking Tobacco: Never Assessed Sex and Gender Information Value Date Recorded Sex Assigned at Not on file Legal Sex Male 5:24 AM ELECTRONICS WORKER Gender Identity Not on file Sexual Orientation Not on file documented as of this encounter Plan of Treatment Upcoming Encounters Date Type Department Care Team (Late st Contact Info) Description 04/03/2024 1:00 PM ELECTRONICS WORKER Office Visit [facility] Oncology and Hematology - Crist[address] [facility] [address] [place] [address] Hunter Jacome MD [address] [facility] [address] [place] [address] documented as of this encounter Visit Diagnoses Diagnosis Contusion of shoulder region- Primary documented in this encounter
--- OUTSIDE RECORDS SUMMARY | 2024-03-21 15:37 | XMS_ITS | Clinical Summary ---
Author Organization [facility] Address [facility] [place] [address] Care Team Providers Care Tar Worker Name Role Phone Unavailable Primary Care Provider Unavailabl e Social History Tobacco Use Types Packs/Day Years Used Date Smoking Tobacco: Never Assessed Sex and Gender Information Value Date Recorded Sex Assigned at Not on file Legal Sex Male 7:25 PM CDT Gender Identity Not on file Sexual Orientation Not on file Plan of Treatment Health Maintenance Due Date Last Done Comments Colorectal Cancer Screening Colonoscopy (10 Years) 1958 Hepatitis C 1976 DTaP, Tdap and Td Vaccines ( 1 - Tdap) 1977 Zoster Vaccines (1 of 2) 2008 COVID-19 Vaccine ( - 2023-2 5 season) 2023 Pneumococcal Vaccine: 65+ Ye ars (1 of 1 - PCV) 11/09/2023 Influenza Adult (#1) 2023 RSV Immunization or 60+ Years (1 - 1-dose 75+ series) 2033 Meningococcal B Vaccine Aged Out No l onger eligible based on patient's age to complete this topic Meningococcal Vaccine Aged Out No samanta jennifer eligible based on patient's age to complete this topic Pneumococcal Vaccine: Pediat rics (0 to 5 Years) and At-Risk Patients (6 to 64 Years) Aged Out No longer eligible b ased on patient's age to complete this topic RSV Immunizations Under 20 Months Aged Out No longer eligible based on patient's age to complete this topic
--- OUTSIDE RECORDS SUMMARY | 2024-03-21 15:37 | XMS_ITS | Referral Summary ---
Author Organization [facility] [employer] Address [address] [place] [address] Care Team Providers Care Derrick Car Operator Name Role Phone Unavailable Primary Care Provider Unavailabl e Source Comments [facility],non-owned Affiliates and Associated Physician Practices is amultiple site organization consisting of ambulatory clinics and hospital sitesin [place], [place], [place]. This disclosure is being madepursuant to the Care Everywhere program and may not contain all information available regarding this patient. Last updated 17.[facility] Allergies Active Allergy Reactions Criticality Noted Date [...] Orientation Not on file Plan of Treatment Not on file
--- OUTSIDE RECORDS SUMMARY | 2024-03-21 15:37 | XMS_ITS | Clinical Summary ---
Author Organization [facility] Kirsten Landon Address [address] [place] [address] Care Team Providers Care Food Safety Director Name Role Phone Unavailable Primary Care Provider Unavailabl e Allergies Active Allergy Reactions Criticality Noted Date Comments Lisinopril Swelling Low 12/12/2019 Niacin Itching,Nausea and Vomiting Low 12/12/19 20 flushing Medications FreeStyle Alec 2 Plus Sensor Device 03/13/2024 Active chlorthalidone (HYGROTON) 25 mg tablet Take 1 Tablet by mouth daily. 02/17/2024 Active clopidogreL (PLAVIX) 75 mg Tablet Take 1 Tablet by mouth daily. 02/13/2024 Active finasteride (PROSCAR) 5 mg tablet Take 1 Tablet by mouth daily. 02/17/2024 Active FreeStyle Alec 2 [place] Misc as directed 03/13/2024 Act nayely Lantus U-100 Insulin 100 unit/mL vial INJECT 20 UNITS UNDER SKIN EVERY NIGHT AT BEDTIME 03/09/2024 Active losartan (COZAAR) 50 mg tablet Take 1 Tablet by mouth daily. 03/08/2024 Active rosuvastatin (CRESTOR) 10 mg tablet Take 1 Tablet by mouth daily. 02/17/2024 Active potassium chloride (MICRO-K EXTENCAPS) 8 mEq Extended Release capsule Take 1 Capsule by mouth daily. 02/13/2024 Active metFORMIN (GLUCOPHAGE XR) 500 mg Extended Release 24 hour tablet 02/17/2024 Active NovoLOG U-100 Insulin aspart 100 unit/mL vial INJECT PER SLIDING SCALE UNDER THE SKIN THREE TIMES DAILY WITH MEALS. MAX DAILY DOSE 30 UNITS. 03/08/2024 Active ferrous sulfate 325 mg (65 mg iron) tablet Take 325 mg by mouth daily. Active B complex w-C no.20/folic acid (B COMPLEX WITH C 20-FOLIC ACID ORAL) Take by mouth. Active Active Problems No known active problems Encounters Date Type Department Care Team Description 03/21/2024 1:30 PM BUS INFO CONSULTANT Office Visit [facility] Oncology and Hematology [facility] [address] [place] [phone] Hunter Jacome MD Plasma cell disorder (Primary Dx); Chronic anemia; Lymphadenopathy from Last 3 Months Family History Medical History Relation Name Comments No Known Problems Brother Prostate Cancer Father Colon Cancer Maternal Grandmother Prostate Cancer Maternal Grandparent Colon Cancer Mother Relation Name Status Comments Brother Alive Father Alive Maternal Grandmother Maternal Grandparent Mother Alive Social History Tobacco Use Types Packs/Day Years Used Date Smoking Tobacco: Never Smokeless Tobacco: Never Tobacco Cessation:Counseling Given: Not Answered Alcohol Use Standard Drinks/Week Comments Yes 0 (1 standard drink = 0.6 oz pur e alcohol) occassionally on holidays Sex and Gender Information Value Date Recorded Sex Assigned at Not on file Legal Sex Male 5:24 AM BUS INFO CONSULTANT Gender Identity Not on file Sexual Orientation Not on file Last Filed Vital Signs Vital Sign Reading Time Taken Comments Blood Pressure 146/91 03/21/2024 1:51 PM BUS INFO CONSULTANT Pulse 61 03/21/2024 1:51 PM BUS INFO CONSULTANT Temperature 36.2 C (97.2 F) 03/21/2024 1:51 PM BUS INFO CONSULTANT Respiratory Rate 16 03/21/2024 1:51 PM BUS INFO CONSULTANT Oxygen Saturation 90% 03/21/2024 1:51 PM BUS INFO CONSULTANT Inhaled Oxygen Concentration - - Weight 66.2 kg (146 lb) 03/21/2024 1:51 PM BUS INFO CONSULTANT Height 167.6 cm (5' 6 ) 03/21/2024 1:51 PM BUS INFO CONSULTANT Body Mass Index 23.57 03/21/2024 1:51 PM BUS INFO CONSULTANT Plan of Treatment Upcoming Encounters Date Type Department Care Team (Late st Contact Info) Description 04/03/2024 1:00 PM BUS INFO CONSULTANT Office Visit [facility] Oncology and Hematology [place] [address] [place] [address] Hunter Jacome MD [address] [employer] [address] [place] [phone] Health Maintenance Due Date Last Done Comments DTAP/TDAP/TD VACCINES (1 - Tdap) 1977 COLORECTAL SCREENING 11/09/2003 Colorectal Cancer Screening 11/09/2003 FIT-DNA Q 3 years 11/09/2003 FIT/FOBT Q 1 year 11/09/2003 Flex Sig/CT Colonography Q 5 years 11/09/2003 PNEUMOCOCCAL VACCINE 65+ YEARS (1 of 1 - PCV) 11/09/19 09 ZOSTER VACCINE (1 of 2) 2008 INFLUENZA VACCINE (#1) 2023 12/12/2019 Preventative Visit- Commercial 02/15/2024 RSV VACCINE (60+ or ) (1 - 1-dose 75+ series) 2033 Insurance [facility] [id number]
[2024-03-21 16:53] LABS: Iron 81 ug/dL (49-181)
[2024-03-21 16:56] LABS: Alanine Aminotransferase 24 U/L (6-50); Albumin Level 4.2 g/dL (3.5-5.1); Alkaline Phosphatase 52 U/L (38-126); Anion Gap 10 mmol/L (4-12); Aspartate Amino Transferase 68 U/L (17-59); Bilirubin,Total 0.7 mg/dL (0.2-1.3); Blood Urea Nitrogen 13 mg/dL (9-20); Calcium 9.7 mg/dL (8.4-10.2); Carbon Dioxide 29 mmol/L (22-30); Chloride 102 mmol/L (98-107); Estimated Glomerular Filt Rate > 60; Glucose 84 mg/dL (65-110); Lactate Dehydrogenase 194 U/L (120-246); Potassium 3.3 mmol/L (3.4-5.0); Sodium 141 mmol/L (137-145)
[2024-03-21 17:04] LABS: Percent Iron Saturation 31 % (20-50)
[2024-03-21 17:53] LABS: Immunoglobulin A 981 mg/dL (70-400); Immunoglobulin G 3324 mg/dL (700-1600); Immunoglobulin M 166 mg/dL (40-230)
[2024-03-21 18:07] LABS: Folic Acid > 20.0 ng/mL (2.76->20)
[2024-03-23 12:23] LABS: Protein, Total 9.2 g/dL (6.1-8.1)
[2024-03-23 19:24] LABS: Albumin 3.8 g/dL (3.8-4.8); Alpha 1 Globulin 0.3 g/dL (0.2-0.3); Alpha 2 Globulin 0.6 g/dL (0.5-0.9); Beta 1 Globulin 0.6 g/dL (0.4-0.6); Gamma Globulin 3.2 g/dL (0.8-1.7)
[2024-03-24 13:48] LABS: Soluble Transferrin Receptor 1.82 mg/L (0.76-1.76)
[2024-03-25 01:08] LABS: Methylmalonic Acid 132 nmol/L (69-390)
== END 2024-03-21 14:56 | disposition home or self-care (01) ==
LOC: ANHLAB 14:55
PROVIDERS: PCP Family Medicine; Visit Provider Internal Medicine Hematology & Oncology
DX: D64.9 Anemia, unspecified (principal); R59.1 Generalized enlarged lymph nodes; D72.9 Disorder of white blood cells, unspecified
CPT/HCPCS: 36415; 80053; 82607; 82728; 82746; 82784; 83540; 83550; 83615; 83921; 84155; 84165; 84238; 85025; 88184

== ENCOUNTER 2024-03-29 13:30 | Outpatient (RCR) | payer MEDICARE, SELFPAY ==
[2024-03-29 13:35] VITALS: BMI 23.1
[2024-03-29 13:40] VITALS: BMI 23.1
== END 2024-06-11 09:29 | disposition home or self-care (01) ==
LOC: ANHDMC 13:30
PROVIDERS: PCP Family Medicine; Visit Provider Family Medicine
DX: E10.65 Type 1 diabetes mellitus with hyperglycemia (principal); Z71.89 Other specified counseling
CPT/HCPCS: 97802; G0108

== ENCOUNTER 2024-04-03 12:41 | Outpatient (CLI) | payer MEDICARE, SELFPAY ==
--- OUTSIDE RECORDS SUMMARY | 2024-04-03 12:45 | XMS_ITS | Clinical Summary ---
Author Organization [facility] Address [address] [place] [address] Phone Care Team Providers Care City Route Driver Name Role Phone Leodan Rahman MD Primary Care Provider Social History Tobacco Use Types Packs/Day Years Used Date Smoking Tobacco: Never Assessed Sex and Gender Information Value Date Recorded Sex Assigned at Not on file Legal Sex Male 8:42 AM WHITE SHOE EXAMINER Gender Identity Not on file Sexual Orientation Not on file Plan of Treatment Upcoming Encounters Date Type Department Care Team (Late st Contact Info) Description 05/09/2024 2:00 PM CDT Office Visit [facility] - Endocrin[facility] [address] [place] [address] Tania Ordonez MD [address] [address] Health Maintenance Due Date Last [...] patient's age to complete this topic Insurance [facility] Care Teams City Route Driver Relationship Specialty Start Date End Date Leodan Rahman MD [address] [place] [address] PCP - General Family Medicine 03/15/24
--- OUTSIDE RECORDS SUMMARY | 2024-04-03 12:45 | XMS_ITS | Referral Summary ---
Author Organization [facility] [employer] Address [address] [place] [address] Care Team Providers Care Operations Processor Name Role Phone Unavailable Primary Care Provider Unavailabl e Source Comments [facility],non-owned Affiliates and Associated Physician Practices is amultiple site organization consisting of ambulatory clinics and hospital sitesin [place], [place], [place] and [place]. This disclosure is being madepursuant to the Care Everywhere program and may not contain all information available regarding this patient. Last updated 17.[facility] [employer] Allergies Active Allergy Reactions Criticality Noted Date [...]
--- OUTSIDE RECORDS SUMMARY | 2024-04-03 12:45 | XMS_ITS | Encounter Summary ---
Author Organization [facility] Address [address] Attn: Epic Prelude ADT [place] [address] Care Team Providers Care Search Engine Marketing Manager Name Role Phone Leodan Rahman MD Primary Care Provider Encounter Details Date Type Department Care Team (Late st Contact Info) Description 07/30/1986 Outpatient Historical Conversion, History Social History Tobacco Use Types Packs/Day Years Used Date Smoking Tobacco: Never Assessed Sex and Gender Information Value Date Recorded Sex Assigned at Not on file Legal Sex Male 5:24 AM UNION STEWARD Gender Identity Not on file Sexual Orientation Not on file documented as of this encounter Plan of Treatment Upcoming Encounters Date Type Department Care Team (Late st Contact Info) Description 04/03/2024 2:00 PM UNION STEWARD Telephone Check Up [facility] Oncology and Hematology - [place] [address] [facility] [address] [place] [address] Hunter Jacome MD [address] [place] [address] Arrived documented as of this encounter Visit Diagnoses Not on filedocumented in this encounter Care Teams Search Engine Marketing Manager Relationship Specialty Start Date End Date Leodan Rahman MD [address] [facility] [address] [place] [address] PCP - General Family Practice 03/22/24 documented as of this encounter
--- OUTSIDE RECORDS SUMMARY | 2024-04-03 12:45 | XMS_ITS | Clinical Summary ---
Author Organization [facility] [employer] Address [address] [place] [address] Care Team Providers Care Oil Derrick Operator Name Role Phone Unavailable Primary Care Provider Unavailabl e Source Comments [facility],non-owned Affiliates and Associated Physician Practices is amultiple site organization consisting of ambulatory clinics and hospital sitesin [place], [place], [place] and [place]. This disclosure is being madepursuant to the Care Everywhere program and may not contain all information available regarding this patient. Last updated 17.[facility] [employer] Allergies Active Allergy Reactions Criticality Noted Date [...]
--- OUTSIDE RECORDS SUMMARY | 2024-04-03 12:45 | XMS_ITS | Clinical Summary ---
Author Organization [facility] Address [address] [place] [address] Care Team Providers Care Wheat Grower Name Role Phone Unavailable Primary Care Provider [...]
--- OUTSIDE RECORDS SUMMARY | 2024-04-03 12:45 | XMS_ITS | Patient Health Summary ---
Author Organization [facility] Address [address] [place] [address] Care Team Providers Care Associate Professor Of Art Name Role Phone Unavailable Primary Care Provider Unavailabl e Note from [facility],non-owned Affiliates and Associated Physician Practices is amultiple site organization consisting of ambulatory clinics and hospital sitesin [place], [place], [place] and [place]. This disclosure is being madepursuant to the Care Everywhere program and may not contain all information available regarding this patient. Last updated 17.[facility] Allergies * Lisinopril(Swelling) * Niacin(Other) Immunizations * INFLUENZA VACCINE, QUADR. (FLUZONE; FLULAVAL; FLUARIX; AFLURIA QUADRIVALENT; 6MO+), 0.5 ML (IIV4)(Given 12/12/2019) Social History Tobacco Use Types Packs/Day Years Used Date Smoking Tobacco: Never Assessed Sex and Gender Information Value Date Recorded Sex Assigned at Not on file Gender Identity Not on file Sexual Orientation Not on file
--- OUTSIDE RECORDS SUMMARY | 2024-04-03 12:45 | XMS_ITS | Clinical Summary ---
Author Organization [facility] Kirsten Landon Address [address] [place] [address] Care Team Providers Care Music Orchestrator Name Role Phone Leodan Rahman MD Primary Care Provider [phone] Allergies Active Allergy Reactions Criticality Noted Date [...] mouth daily. 02/17/2024 Active FreeStyle Alec 2 [place] Misc as directed 03/13/2024 Act nayely Lantus [...] Encounters Date Type Department Care Team Description 03/27/2024 External Device Data STL ABSTRACTION Provider, Abstract 03/27/2024 External Device Data STL ABSTRACTION Provider, Abstract 03/27/2024 External Device Data STL ABSTRACTION Provider, Abstract 03/21/2024 1:30 PM COMMISSIONS SPECIALIST Office Visit [facility] Oncology and Hematology - [place] [address] [place] [phone] Hunter Jacome MD Plasma cell disorder (Primary [...] on file Legal Sex Male 5:24 AM COMMISSIONS SPECIALIST Gender Identity Not on file Sexual Orientation Not on file Last Filed Vital Signs Vital Sign Reading Time Taken Comments Blood Pressure 146/91 03/21/2024 1:51 PM COMMISSIONS SPECIALIST Pulse 61 03/21/2024 1:51 PM COMMISSIONS SPECIALIST Temperature 36.2 C (97.2 F) 03/21/2024 1:51 PM COMMISSIONS SPECIALIST Respiratory Rate 16 03/21/2024 1:51 PM COMMISSIONS SPECIALIST Oxygen Saturation 90% 03/21/2024 1:51 PM COMMISSIONS SPECIALIST Inhaled Oxygen Concentration - - Weight 66.2 kg (146 lb) 03/21/2024 1:51 PM COMMISSIONS SPECIALIST Height 167.6 cm (5' 6 ) 03/21/2024 1:51 PM COMMISSIONS SPECIALIST Body Mass Index 23.57 03/21/2024 1:51 PM COMMISSIONS SPECIALIST Plan of Treatment Upcoming Encounters Date Type Department Care Team (Late st Contact Info) Description 04/03/2024 2:00 PM COMMISSIONS SPECIALIST Telephone Check Up [facility] Oncology and Hematology - [place] [address] [place] [phone] Hunter Jacome MD [address] [place] [address] Arrived Health Maintenance Due Date Last Done Comments [...] (1 - 1-dose 75+ series) 2033 Insurance [facility] [id number] Care Teams Music Orchestrator Relationship Specialty Start Date End Date Leodan Rahman MD [address] [place] [address] PCP - General Family Practice 03/22/24
--- OUTSIDE RECORDS SUMMARY | 2024-04-03 12:45 | XMS_ITS | Encounter Summary ---
Author Organization [facility] Address [address] [place] [address] Care Team Providers Care Tubular Riveter Name Role Phone Leodan Rahman MD Primary Care Provider [phone] Encounter Details Date Type Department Care Team (Late st Contact Info) Description 01/28/2001 Outpatient Historical [facility] Brodie Chand MD [address] [place], [place] [id number] [place], Authorized P NO ADDRESS ON FILE CONTUSION SHOULDER REG (Primary Dx) Social History Tobacco Use Types Packs/Day Years Used Date Smoking Tobacco: Never Assessed Sex and Gender Information Value Date Recorded Sex Assigned at Not on file Legal Sex Male 5:24 AM MAGNETIZER Gender Identity Not on file Sexual Orientation Not on file documented as of this encounter Plan of Treatment Upcoming Encounters Date Type Department Care Team (Late st Contact Info) Description 04/03/2024 2:00 PM MAGNETIZER Telephone Check Up [facility] Oncology and Hematology - [place] [address] [address] [place] [address] Hunter Jacome MD [address] [facility] [address] [place] [address] Arrived documented as of this encounter Visit Diagnoses Diagnosis Contusion of shoulder region- Primary documented in this encounter Care Teams Tubular Riveter Relationship Specialty Start Date End Date Leodan Rahman MD [address] [facility] [address] [place] [phone] PCP - General Family Practice 03/22/24 documented as of this encounter
[2024-04-05 11:49] LABS: Kappa\\Lambda Light Chains 1.23 (0.26-1.65); Lambda Light Chain 124.2 mg/L (5.7-26.3)
== END 2024-04-03 12:42 | disposition home or self-care (01) ==
LOC: ANHLAB 12:42
PROVIDERS: PCP Family Medicine; Visit Provider Internal Medicine Hematology & Oncology
DX: D72.9 Disorder of white blood cells, unspecified (principal)
CPT/HCPCS: 36415; 83883

== ENCOUNTER 2025-01-09 01:00 | Day surgery (SDC) | payer MEDICARE, SELFPAY ==
[2024-12-28 12:17] VITALS: BMI 22.4
--- NOTE | 2024-12-28 12:25 | PC.NURSE ---
Spoke with patient regarding medication Plavix. Patient verbalizes understanding that the last dose is to be taken 01-01-25 and the Endoscopist will instruct them when to restart after the procedure.
--- OUTSIDE RECORDS SUMMARY | 2025-01-09 01:04 | XMS_ITS | Clinical Summary ---
Author Organization [facility] Address [address] [place] [address] Care Team Providers Care Grade Recorder Name Role Phone Unavailable Primary Care Provider [...] Td Vaccines ( 1 - Tdap) 1977 Pneumococcal Vaccine: 50+ Ye ars (1 of 1 - PCV) 2008 Zoster Vaccines (1 of 2) 2008 COVID-19 Vaccine (1 - 2024-2 6 season) 2024 Influenza Adult (#1) 2024 RSV Immunization or 60+ Years (1 - 1-dose 75+ series) 2033 Hepatitis A Vaccines Aged Out No long er eligible based on patient's age to complete this topic Meningococcal B Vaccine Aged Out No l onger eligible based on patient's age to complete this topic Meningococcal Vaccine Aged Out No samanta jennifer eligible based on patient's age to complete this topic RSV Immunizations Under 20 Months Aged Out No longer eligible based on patient's age to complete this topic
--- OUTSIDE RECORDS SUMMARY | 2025-01-09 01:04 | XMS_ITS | Encounter Summary ---
Author Organization [facility] Address [address] [place] [address] Care Team Providers Care Blood Bank Technologist Name Role Phone Leodan Rahman MD Primary Care Provider [phone] Encounter Details Date Type Department Care Team (Late st Contact Info) Description 01/28/2001 Emergency [facility] Brodie Chand MD [place] [address] [place], Authorized P NO ADDRESS ON FILE CONTUSION SHOULDER REG (Primary Dx) Social History Tobacco Use Types Packs/Day Years Used Date Smoking Tobacco: Never Assessed Sex and Gender Information Value Date Recorded Sex Assigned at Not on file Legal Sex Male 5:24 AM SLOTTER OPERATOR HELPER Gender Identity Not on file Sexual Orientation Not on file documented as of this encounter Plan of Treatment Upcoming Encounters Date Type Department Care Team (Late st Contact Info) Description 01/22/2025 2:15 PM SLOTTER OPERATOR HELPER Office Visit [facility] Oncology and Hematology - [place] [address] [place] [address] Hunter Jacome MD [address] [facility] [address] [place] [address] documented as of this encounter Visit Diagnoses Diagnosis Contusion of shoulder region- Primary documented in this encounter Care Teams Blood Bank Technologist Relationship Specialty Start Date End Date Leodan Rahman MD [address] [facility] [address] [place] [address] PCP - General Family Practice 03/22/24 documented as of this encounter
--- OUTSIDE RECORDS SUMMARY | 2025-01-09 01:04 | XMS_ITS | Encounter Summary ---
Author Organization [facility] Address [address] [facility] Attn: Epic Prelude ADT [place] [address] Care Team Providers Care Biscuitware Brusher Name Role Phone Leodan Rahman MD Primary Care Provider [phone] Encounter Details Date Type Department Care Team (Latest Contact Info) Description 07/30/1986 Emergency Conversion, History Social History Tobacco Use Types Packs/Day Years Used Date Smoking Tobacco: Never Assessed Sex and Gender Information Value Date Recorded Sex Assigned at Not on file Legal Sex Male 5:24 AM MILLWRIGHT HELPER Gender Identity Not on file Sexual Orientation Not on file documented as of this encounter Plan of Treatment Upcoming Encounters Date Type Department Care Team (Late st Contact Info) Description 01/22/2025 2:15 PM MILLWRIGHT HELPER Office Visit [facility] Oncology and Hematology - [place] [address] [facility] [address] [place] [address] Hunter Jacome MD [address] [facility] [address] [place] [address] documented as of this encounter Visit Diagnoses Not on filedocumented in this encounter Care Teams Biscuitware Brusher Relationship Specialty Start Date End Date Leodan Rahman MD [address] [facility] [address] [place] [phone] PCP - General Family Practice 03/22/24 documented as of this encounter
--- OUTSIDE RECORDS SUMMARY | 2025-01-09 01:04 | XMS_ITS | Clinical Summary ---
Author Organization [facility] Kirsten Landon Address [address] [place] [address] Care Team Providers Care Recycling Director Name Role Phone Leodan Rahman MD Primary Care Provider [phone] Allergies Active Allergy Reactions Criticality Noted Date [...] mouth daily. 02/17/2024 Active FreeStyle Alec 2 [place] Misc as directed 03/13/2024 Act nayely Lantus [...] Encounters Date Type Department Care Team Description 10/23/2024 External Device Data STL ABSTRACTION Provider, Abstract from Last 3 Months Family History Medical [...] on file Legal Sex Male 5:24 AM DIRECTOR OF GUIDANCE Gender Identity Not on file Sexual Orientation Not on file Last Filed Vital Signs Vital Sign Reading Time Taken Comments Blood Pressure 146/91 03/21/2024 1:51 PM DIRECTOR OF GUIDANCE Pulse 61 03/21/2024 1:51 PM DIRECTOR OF GUIDANCE Temperature 36.2 C (97.2 F) 03/21/2024 1:51 PM DIRECTOR OF GUIDANCE Respiratory Rate 16 03/21/2024 1:51 PM DIRECTOR OF GUIDANCE Oxygen Saturation 90% 03/21/2024 1:51 PM DIRECTOR OF GUIDANCE Inhaled Oxygen Concentration - - Weight 66.2 kg (146 lb) 03/21/2024 1:51 PM DIRECTOR OF GUIDANCE Height 167.6 cm (5' 6) 03/21/2024 1:51 PM DIRECTOR OF GUIDANCE Body Mass Index 23.57 03/21/2024 1:51 PM DIRECTOR OF GUIDANCE Plan of Treatment Upcoming Encounters Date Type Department Care Team (Late st Contact Info) Description 01/22/2025 2:15 PM DIRECTOR OF GUIDANCE Office Visit [facility] Oncology and Hematology - [place] [address] [facility] [address] [place] [address] Hunter Jacome MD [address] [facility] [address] [place] [address] Health Maintenance Due Date Last Done Comments DTAP/TDAP/TD VACCINES (1 - Tdap) 1977 COLORECTAL SCREENING 11/09/2003 Colorectal Cancer Screening 11/09/2003 FIT-DNA Q 3 years 11/09/2003 FIT/FOBT Q 1 year 11/09/2003 Flex Sig/CT Colonography Q 5 years 11/09/2003 PNEUMOCOCCAL VACCINE 50+ YEARS (1 of 1 - PCV) 11/09/19 09 ZOSTER VACCINE (1 of 2) 2008 INFLUENZA VACCINE (#1) 2024 12/12/2019 RSV VACCINE (60+ or ) (1 - 1-dose 75+ series) 2033 Insurance [facility] [employer] PPO [id number] Care Teams Recycling Director Relationship Specialty Start Date End Date Leodan Rahman MD [address] [facility] [address] [place] [phone] PCP - General Family Practice 03/22/24
--- OUTSIDE RECORDS SUMMARY | 2025-01-09 01:05 | XMS_ITS | Patient Health Record ---
Author Organization [facility] Address [address] [address] Care Team Providers Care Leveler Name Role Phone Feng Garnica Primary Care Provider [phone] Reason For Referral No Information Medications Medication SIG (Take, Route, Frequency, Duration) Notes Start Date End Date Status hydroCHLOROthiazide 12.5MG PO DAILY [facility] [place] Active Crestor 10MG PO BEDTIME [facility] [place] Activ e CLOPIDOGREL 75 MG 75MG PO DAILY [facility] [place] Active Vitamin B Complex OR DAILY [facility] [place]- 09/25/2010 A ctive Fish Oil 1000MG OR DAILY [facility] [place]- 09/25/2010 Act nayely Slow Release Iron 65MG OR DAILY [facility] [place]- 09/25/2010 Active amLODIPine Besylate 5MG PO daily in am [facility] [place] Active Lisinopril 40MG OR DAILY [facility] [place] Act nayely Immunizations Vaccine Route Administration Date Status Comme nts Influenza (split), 3 yrs and above Unknown 01/24/2013 P ending Inactivated Problems Problem Type SNOMED Code ICD Code Onset Dates Problem Status W/U Status Risk Notes Problem Benign neoplasm of colon (26440898) Benign neoplasm of colon (211.3) Active confirmed Problem Disorder of lipid metabolism (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) 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 Problem Disorder of lipid metabolism (586904405) Unspecified disorder of lipoid metabolism (272.9) Active confirmed Problem Iron deficiency anemia (21455092) Unspecified iron deficiency anemia (280.9) Active confirmed Problem Anemia (795556176) Unspecified a nemia (285.9) Active confirmed Problem Allergic rhinitis (05074942) Allergic rhinitis, cause unspecified (477.9) Active confirmed Problem Benign essential hypertension (4094152) Essential hypertension, benign (401.1) Active confirmed Problem Sinus node dysfunction (48232004) Sinoatrial node dysfunction (427.81) Active confirmed Problem Cerebrovascular accident (disorder) (679096588) Acute, but ill-defined, cerebrovascular disease (436) Active confirmed Problem Edema (529130108) Edema (782.3) Active confirme d Problem Impaired glucose tolerance test (437469204) Impaired glucose tolerance test (oral) (790.22) Active confirmed Problem Family history of prostate cancer (110490742) Family history of malignant neoplasm, prostate (V16.42) Active confirmed Problem Family history: Cardiovascular disease (situation) (731954004) Family history of other cardiovascular diseases (V17.49) Active confirmed Problem FH: Diabetes mellitus (853110131) Family history of diabetes mellitus (V18.0) Active confirmed Plan Of Treatment No Information Insurance Providers Payer Name Payer Address Payer Phone Subscriber Number Group Number Insured Name Patient Relationship to Insured Coverage Start Date Coverage End Date [facility] [address] [address] [place] [address] [id number] [place] JENNINGS Self - patient is the insured Medical (General) History Surgical History Surgery Date(Month/Year) Cataract Surgery ; Colonoscopy [id number] ; Colonoscopy [id number] ;
[2025-01-09 09:47] VITALS: BP 125/75; PULSE 59; RESP 16; TEMP 36.6; O2SAT 100; BMI 22.1
--- NOTE | 2025-01-09 09:50 | SUR.PREOP ---
Patient has dexcom for blood sugars. Patient's blood sugar is currently 89 per dexcom machine.
[2025-01-09] MEDS: LACTATED RINGERS 1,000 ML 150 ML IV CONT (09:58)
--- NOTE | 2025-01-09 10:27 | WPDANESEPPF ---
Anes - Initial Pre Proc Eval Procedure: Operation Date: 01/09/25 11:00 Proposed Procedures p Screening Colonoscopy - Raoul Marsh MD Date/Time: 01/09/25 10:27 Surgeon: Raoul Marsh MD Pre Op Diagnosis: Family Hx of malignant neoplasm of digestive organ Patient Data Age: 64 Gender: M Height: 1.68 m Weight: 62.4 kg Last Vital Signs Temp 97.9 F 01/09/25 09:47 Pulse 59 L 01/09/25 09:47 Resp 16 01/09/25 09:47 BP 125/75 01/09/25 09:47 Pulse Ox 100 01/09/25 09:47 O2 Del Method Room Air 01/09/25 09:47 Allergies Allergy/AdvReac Type Severity Reaction Status Date / Time niacin Allergy Intermediate Itching Verified 12/28/24 12:13 lisinopril Allergy Unknown Angioedema Verified 12/28/24 12:13 Home Medications ?Medication ?Instructions ?Recorded ?Confirmed ?Type omega-3 fatty acids 1,000 mg 1,000 mg PO DAILY 01/31/19 12/28/24 History capsule (Fish Oil Concentrate) vitamin B complex (B 1 tablet PO DAILY 01/31/19 01/09/25 History Complex-Vitamin B12 tablet) blood sugar diagnostic (Blood #100 ea 03/27/20 12/28/24 Rx Glucose Test strips) blood-glucose meter #1 ea 03/27/20 12/28/24 Rx lancets #200 ea 03/27/20 12/28/24 Rx pen needle, diabetic 32 gauge x #100 ea 04/25/20 12/28/24 Rx 5/32 (Pen Needle) ferrous sulfate 325 mg (65 mg 325 mg PO DAILY #90 tabs 09/29/20 01/09/25 Rx iron) tablet metformin 500 mg tablet,extended 500 mg PO DAILY #30 tabs 05/23/24 01/09/25 Rx release 24 hr rosuvastatin 10 mg tablet (Crestor) 10 mg PO DAILY #90 tabs 08/07/24 12/28/24 Rx amlodipine 10 mg tablet See Rx Instructions .Route 10/30/24 01/09/25 Rx .COMPLEX #90 tabs chlorthalidone 25 mg tablet 25 mg PO DAILY 90 days #90 tabs 11/08/24 01/09/25 Rx clopidogrel 75 mg tablet 75 mg PO DAILY #90 tabs 11/15/24 01/09/25 Rx potassium chloride 8 mEq 8 meq PO DAILY #90 caps 11/15/24 12/28/24 Rx capsule,extended release insulin glargine 100 unit/mL (3 10 unit subcut QPM 12/17/24 01/09/25 History mL) subcutaneous pen (Lantus Solostar U-100 Insulin) insulin lispro 100 unit/mL 3 unit subcut USEASDIRECTD 12/17/24 01/09/25 History subcutaneous pen (Humalog KwikPen (U-100) Insulin) Patient hx anesthesia problems: none Family hx anesthesia problems: none Results Review: All pre-operative results and documents have been reviewed as part of the pre-operative evaluation. [facility] Past Medical History Medical History Family history of colon cancer Dysosmia Uncontrolled diabetes mellitus Type I diabetes mellitus Glaucoma Kidney stones Benign prostatic hyperplasia Colon polyps Cerebrovascular accident (2011) occasional balance issues Type 2 diabetes mellitus Hyperlipidemia Hypertension Seasonal allergies Arthritis Surgical History Surgical History History of cataract extraction History of repair of right rotator cuff (2019) Family History Family History Other Arthritis Diabetes mellitus Hypertension Malignant neoplasm Social History Social History Social History: Surrogate medical decision maker: Dania Sharpe, spouse. Code status: Full code. Smoking status: Never smoker Second hand tobacco smoke exposure: Yes Alcohol intake: never Drinks per week: 1 Alcohol use details: occasionally Substance use: never Substance use type: does not use Lack of Transportation: No Lack of Food: Never True Current Housing: I Have Housing Concerned About Future Housing: No Difficulty Paying Gas/Electric Bills: No Difficulty Paying for Meds: No Currently Unemployed: No Education: High School Diploma/GED Difficulty w/ Childcare or Family Care: No Spiritual care concerns: No Anes - Eval Final PreProcedure Day of Procedure 01/09/25 10:27 Patient weight: normal Lungs: normal air movement Airway: Mallampati scale class II and special considerations (L upper cap in place. ) Neurological: alert and oriented Last oral intake: >/= 8 hours ASA classification: III Emergent: no Anesthetic plan: proceed Anesthesia type and monitoring: general GIVS and standard monitoring Results Review: All pre-operative results and documents have been reviewed as part of the pre-operative evaluation. DM 1 fsbs nml, HTN, hx of CVA without residual, active raking leaves in the yard, no cp or sob. Informed Consent: The patient's anesthetic plan and its attendant risks and benefits were discussed with the patient/family/POA. Questions were solicited and answers provided to the satisfaction of the patient/family/POA.
--- NOTE | 2025-01-09 11:00 | PM.IMHP ---
H&P: HPI History of Present Illness Date/Time: 01/09/25 11:00 Chief Complaint: Family history of colon cancer Narrative: This patient has family history of colorectal cancer. His mother had it when she was in her mid 60s. His last colonoscopy was 5 years ago. Review of Systems Review of Systems: All systems reviewed & are unremarkable except as noted in HPI and below PMFSH Past Medical History Medical History Family history of colon cancer Dysosmia Uncontrolled diabetes mellitus Type I diabetes mellitus Glaucoma Kidney stones Benign prostatic hyperplasia Colon polyps Cerebrovascular accident (2011) occasional balance issues Type 2 diabetes mellitus Hyperlipidemia Hypertension Seasonal allergies Arthritis Surgical History Surgical History History of cataract extraction History of repair of right rotator cuff (2019) Family History Family History Other Arthritis Diabetes mellitus Hypertension Malignant neoplasm Social History Social History Social History: Surrogate medical decision maker: Dania Sharpe, spouse. Code status: Full code. Smoking status: Never smoker Second hand tobacco smoke exposure: Yes Alcohol intake: never Drinks per week: 1 Alcohol use details: occasionally Substance use: never Substance use type: does not use Lack of Transportation: No Lack of Food: Never True Current Housing: I Have Housing Concerned About Future Housing: No Difficulty Paying Gas/Electric Bills: No Difficulty Paying for Meds: No Currently Unemployed: No Education: High School Diploma/GED Difficulty w/ Childcare or Family Care: No Spiritual care concerns: No Meds Home Medications and Allergies Home Medications ?Medication ?Instructions ?Recorded ?Confirmed ?Type omega-3 fatty acids 1,000 mg 1,000 mg PO DAILY 01/31/19 12/28/24 History capsule (Fish Oil Concentrate) vitamin B complex (B 1 tablet PO DAILY 01/31/19 01/09/25 History Complex-Vitamin B12 tablet) blood sugar diagnostic (Blood #100 ea 03/27/20 12/28/24 Rx Glucose Test strips) blood-glucose meter #1 ea 03/27/20 12/28/24 Rx lancets #200 ea 03/27/20 12/28/24 Rx pen needle, diabetic 32 gauge x #100 ea 04/25/20 12/28/24 Rx 5/32 (Pen Needle) ferrous sulfate 325 mg (65 mg 325 mg PO DAILY #90 tabs 09/29/20 01/09/25 Rx iron) tablet metformin 500 mg tablet,extended 500 mg PO DAILY #30 tabs 05/23/24 01/09/25 Rx release 24 hr rosuvastatin 10 mg tablet (Crestor) 10 mg PO DAILY #90 tabs 08/07/24 12/28/24 Rx amlodipine 10 mg tablet See Rx Instructions .Route 10/30/24 01/09/25 Rx .COMPLEX #90 tabs chlorthalidone 25 mg tablet 25 mg PO DAILY 90 days #90 tabs 11/08/24 01/09/25 Rx clopidogrel 75 mg tablet 75 mg PO DAILY #90 tabs 11/15/24 01/09/25 Rx potassium chloride 8 mEq 8 meq PO DAILY #90 caps 11/15/24 12/28/24 Rx capsule,extended release insulin glargine 100 unit/mL (3 10 unit subcut QPM 12/17/24 01/09/25 History mL) subcutaneous pen (Lantus Solostar U-100 Insulin) insulin lispro 100 unit/mL 3 unit subcut USEASDIRECTD 12/17/24 01/09/25 History subcutaneous pen (Humalog KwikPen (U-100) Insulin) Allergies Allergy/AdvReac Type Severity Reaction Status Date / Time niacin Allergy Intermediate Itching Verified 12/28/24 12:13 lisinopril Allergy Unknown Angioedema Verified 12/28/24 12:13 Vital Signs Vital Signs - 24 hr 01/09/25 09:47 Temperature 97.9 F Pulse Rate 59 L Respiratory Rate 16 Blood Pressure 125/75 Pulse Oximetry 100 Oxygen Delivery Room Air Exam Const: General: cooperative and healthy appearing Resp: Effort & Inspection: normal respiratory effort and able to speak in complete sentences Auscultation: clear to auscultation bilaterally Cardio: Rate: regular rate Rhythm: regular rhythm GI: Inspection: normal to inspection GI Palp: No No hepatosplenomegaly present Auscultation: normal bowel sounds Rectal Exam: deferred Skin: General skin exam: normal color Psych: Appearance: grossly normal Mental Status: mental status grossly normal Assessment and Plan Assessment and plan (1) Family history of colon cancer: Code(s): Z80.0 - Family history of malignant neoplasm of digestive organs Status: Acute Assessment and Plan: The patient is deemed a good candidate for the procedure. Consent signed. Will proceed.
[2025-01-09 11:29] VITALS: BP 99/60; PULSE 56; RESP 14; O2SAT 100
[2025-01-09 11:39] VITALS: BP 115/65; PULSE 60; RESP 22; O2SAT 100
[2025-01-09 11:49] VITALS: BP 118/75; PULSE 50; RESP 17; O2SAT 100
--- NOTE | 2025-01-09 12:07 | SUR.PHASEII ---
Patient blood glucose was 95 in recovery prior to discharge via dexcom.
== END 2025-01-09 12:06 | disposition home or self-care (01) ==
PROVIDERS: PCP Family Medicine; Referring Provider Family Medicine; Visit Provider Internal Medicine Gastroenterology
PROC: 0DJD8ZZ Inspection of Lower Intestinal Tract, Via Natural or Artificial Opening Endoscopic (ICD-10-PCS; CPT 45378; principal; 2025-01-09 11:00)
DX: Z12.11 Encounter for screening for malignant neoplasm of colon (principal); Z80.0 Family history of malignant neoplasm of digestive organs
CPT/HCPCS: G0105; J2003; J2704; J7120